=== PATIENT | female | born 1995 | race Caucasian/White ===

== ENCOUNTER 2017-01-13 17:42 | Emergency (ER) | payer OTHER ==
[2017-01-13] MEDS ORDERED: SODIUM CHLORIDE 0.9% 500 ML IV STA (18:03)
--- NOTE | 2017-01-13 18:09 | ED ---
General Adult HPI - General Chief complaint: Abdominal Pain Stated complaint: ,cramping Time Seen by Provider: 01/13/17 17:55 Source: patient, RN notes reviewed Mode of arrival: ambulatory Limitations: no limitations - History of Present Illness Initial comments: Patient is a 21-year-old female chief complaint of one day of lower left abdominal cramping. Patient reports that she took a positive test yesterday. Patient reported a severe first . Patient reports that she has had no vaginal discharge, nausea, vomiting, fever or chills. She denies any dysuria or hematuria. She denies any changes in bowel movements. 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 She reports last menstrual period was December 11. Patient denies any recent fever, chills, shortness of breath, chest pain, back pain, nausea vomiting, numbness or tingling, dysuria or hematuria, constipation or diarrhea, headaches or visual changes, or any other current symptoms - Related Data Home Medications Medication Instructions Recorded Confirmed Albuterol Inhaler [Ventolin 2 puff INHALATION Q6HR PRN 03/07/14 01/13/17 Inhaler] Montelukast Sodium [Singulair] 10 mg PO DAILY PRN 03/07/14 01/13/17 Previous Rx's Medication Instructions Recorded EPINEPHrine (Auto Inject) [Epipen] 0.3 mg IM ONCE PRN #1 syringe 12/16/15 Kqd-Qcir-Khuxl Acid 1 cap PO DAILY #30 cap 01/13/17 [-U Capsule] Allergies Allergy/AdvReac Type Severity Reaction Status Date / Time Milk Containing Products Allergy Anaphylaxis Verified 01/13/17 19:00 Penicillins Allergy Unknown Verified 01/13/17 19:00 sulfamethoxazole Allergy Unknown Verified 01/13/17 19:00 [From Bactrim] trimethoprim [From Bactrim] Allergy Unknown Verified 01/13/17 19:00 Review of Systems ROS Statement: Those systems with pertinent positive or pertinent negative responses have been documented in the HPI. ROS Other: All systems not noted in ROS Statement are negative. 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 No distress. Limitations: no limitations General appearance: alert, in no apparent distress Head exam: Present: atraumatic, normocephalic, normal inspection Eye exam: Present: normal appearance, PERRL, EOMI. Absent: scleral icterus, conjunctival injection, periorbital swelling ENT exam: Present: normal exam, mucous membranes moist Neck exam: Present: normal inspection. Absent: tenderness, meningismus, lymphadenopathy Respiratory exam: Present: normal lung sounds bilaterally. Absent: respiratory distress, wheezes, rales, rhonchi, stridor Cardiovascular Exam: Present: regular rate, normal rhythm, normal heart sounds. Absent: systolic murmur, diastolic murmur, rubs, gallop, clicks GI/Abdominal exam: Present: soft, tenderness (Patient has mild left lower quadrant tenderness), normal bowel sounds. Absent: distended, guarding, rebound , rigid External exam: Present: normal external exam. Absent: erythema, swelling Speculum exam: Present: normal speculum exam, vaginal discharge (Scant white vaginal discharge.). Absent: cervical discharge, vaginal bleeding, foreign body Extremities exam: Present: normal inspection, full ROM, normal capillary refill. Absent: tenderness, pedal edema, joint swelling, calf tenderness Back exam: Present: normal inspection Neurological exam: Present: alert, oriented X3, CN II-XII intact Psychiatric exam: Present: normal affect, normal mood Skin exam: Present: warm, dry, intact, normal color. Absent: rash Course Vital Signs 01/13/17 17:51 Temperature 98.1 F Pulse Rate 88 Respiratory 20 Rate Blood Pressure 157/67 O2 Sat by Pulse 98 Oximetry Medical Decision Making - Medical Decision Making Patient is a 21-year-old female chief complaint of one day of lower left abdominal cramping. Patient reports that she took a positive test yesterday. Patient reported a severe first . Patient reports that she has had no vaginal discharge, nausea, vomiting, fever or chills. She denies any dysuria or hematuria. Patient received lab work and transvaginal ultrasound to ensure no acute signs of ectopic . Transvaginal ultrasound was completed. No IUP is seen at this time. The uterus measures 6.6 x 3.3 x 3 cm. Right ovary is 3.2 x 2.1 x 1.87 m. There is evidence of right ovarian cyst measuring 1 cm. no evidence of ovarian torsion or free fluid within the pelvis. Patient's lab work was reviewed and is negative for any acute process. Patient does have a hCG serum Quant of 457. This is very early . I will have the patient repeat her lab work. I also will place the patient on vitamins. This is likely a normal cramping in early . I did advise the patient to follow-up with A[employer]ILI[employer] POWERPLANT OPERATOR and to return to emergency department if any alarming signs or symptoms occur. - Lab Data Result diagrams: 01/13/17 18:55 01/13/17 18:55 Lab Results 01/13/17 01/13/17 01/13/17 Range/Units 18:55 18:55 18:55 WBC 9.3 (4.0-11.0) k/uL RBC 5.11 (3.80-5.40) m/uL Hgb 14.1 (11.4-16.0) gm/dL Hct 41.8 (34.0-46.0) % MCV 81.8 (80.0-100.0) fL MCH 27.7 (25.0-35.0) pg MCHC 33.8 (31.0-37.0) g/dL RDW 14.0 (11.5-15.5) % Plt Count 440 (150-450) k/uL Neutrophils % 52 % Lymphocytes % 37 % Monocytes % 4 % Eosinophils % 3 % Basophils % 1 % Neutrophils # 4.8 (1.3-7.7) k/uL Lymphocytes # 3.4 (1.0-4.8) k/uL Monocytes # 0.4 (0-1.0) k/uL Eosinophils # 0.3 (0-0.7) k/uL Basophils # 0.1 (0-0.2) k/uL Sodium 142 (137-145) mmol/L Potassium 4.0 (3.5-5.1) mmol/L Chloride 104 (98-107) mmol/L Carbon Dioxide 22 (22-30) mmol/L Anion Gap 16 mmol/L BUN 13 (7-17) mg/dL Creatinine 0.77 (0.52-1.04) mg/dL Est GFR (MDRD) Af Amer >60 (>60 ml/min/1.73 sqM) Est GFR (MDRD) Non-Af >60 (>60 ml/min/1.73 sqM) Glucose 88 (74-99) mg/dL Calcium 10.1 (8.4-10.2) mg/dL Total Bilirubin 0.9 (0.2-1.3) mg/dL AST 31 (14-36) U/L ALT 34 (9-52) U/L Alkaline Phosphatase 113 (38-126) U/L Total Protein 8.6 H (6.3-8.2) g/dL Albumin 4.8 (3.5-5.0) g/dL Amylase 52 (30-110) U/L Lipase 81 (23-300) U/L HCG, Quant 457.9 mIU/mL Urine Color Urine Appearance (Clear) Urine pH (5.0-8.0) Ur Specific [place] (1.001-1.035) Urine Protein (Negative) Urine Glucose (UA) (Negative) Urine Ketones (Negative) Urine Blood (Negative) Urine Nitrate (Negative) Urine Bilirubin (Negative) Urine Urobilinogen (<2.0) mg/dL Ur Leukocyte Esterase (Negative) Urine WBC (0-5) /hpf Ur Squamous Epith Cells (0-4) /hpf Urine Mucus (None) /hpf Trichomonas Ag (Rapid) (Negative) Blood Type A Positive Blood Type Recheck No 01/13/17 01/13/17 Range/Units 18:55 18:55 WBC (4.0-11.0) k/uL RBC (3.80-5.40) m/uL Hgb (11.4-16.0) gm/dL Hct (34.0-46.0) % MCV (80.0-100.0) fL MCH (25.0-35.0) pg MCHC (31.0-37.0) g/dL RDW (11.5-15.5) % Plt Count (150-450) k/uL Neutrophils % % Lymphocytes % % Monocytes % % Eosinophils % % Basophils % % Neutrophils # (1.3-7.7) k/uL Lymphocytes # (1.0-4.8) k/uL Monocytes # (0-1.0) k/uL Eosinophils # (0-0.7) k/uL Basophils # (0-0.2) k/uL Sodium (137-145) mmol/L Potassium (3.5-5.1) mmol/L Chloride (98-107) mmol/L Carbon Dioxide (22-30) mmol/L Anion Gap mmol/L BUN (7-17) mg/dL Creatinine (0.52-1.04) mg/dL Est GFR (MDRD) Af Amer (>60 ml/min/1.73 sqM) Est GFR (MDRD) Non-Af (>60 ml/min/1.73 sqM) Glucose (74-99) mg/dL Calcium (8.4-10.2) mg/dL Total Bilirubin (0.2-1.3) mg/dL AST (14-36) U/L ALT (9-52) U/L Alkaline Phosphatase (38-126) U/L Total Protein (6.3-8.2) g/dL Albumin (3.5-5.0) g/dL Amylase (30-110) U/L Lipase (23-300) U/L HCG, Quant mIU/mL Urine Color Yellow Urine Appearance Cloudy H (Clear) Urine pH 5.5 (5.0-8.0) Ur Specific [place] 1.019 (1.001-1.035) Urine Protein Negative (Negative) Urine Glucose (UA) Negative (Negative) Urine Ketones 1+ H (Negative) Urine Blood Negative (Negative) Urine Nitrate Negative (Negative) Urine Bilirubin Negative (Negative) Urine Urobilinogen <2.0 (<2.0) mg/dL Ur Leukocyte Esterase Negative (Negative) Urine WBC 5 (0-5) /hpf Ur Squamous Epith Cells 18 H (0-4) /hpf Urine Mucus Rare H (None) /hpf Trichomonas Ag (Rapid) Negative (Negative) Blood Type Blood Type Recheck - Radiology Data Radiology results: report reviewed Gestational survey showed that there is no IUP seen. The uterus measures 6.6 x 3.3 x 3 cm. Gestational age was measured to be approximately 4 weeks and 5 days. Normal pelvic sonogram no evidence of intrauterine or extrauterine . Disposition Clinical Impression: Abdominal cramping affecting Disposition: HOME SELF-CARE Condition: Good Instructions: (ED) Additional Instructions: Patient is to rest, increase fluids and to return to emergency Department any alarming signs or symptoms occur. Repeat blood work in 2 days. Follow-up with primary care provider. Take vitamins. Prescriptions: Fer-Zvhn-Devbj Acid [-U Capsule] 1 cap PO DAILY #30 cap Referrals: Paris De Paz MD [Primary Care Provider] - 1-2 days Maggy Hirsch MD [STAFF PHYSICIAN] - 1-2 days Time of Disposition: 19:48
[2017-01-13 19:10] LABS: Basophils # (A) 0.1 k/uL (0-0.2); Basophils % (A) 1 %; CH 28.6; CHCM 35.1; Eosinophils # (A) 0.3 k/uL (0-0.7); Eosinophils % (A) 3 %; HCT 41.8 % (34.0-46.0); HGB 14.1 gm/dL (11.4-16.0); Luc # (Auto) 0.33; Luc % (Auto) 4; Lymphocytes # (A) 3.4 k/uL (1.0-4.8); Lymphocytes % (A) 37 %; MCH 27.7 pg (25.0-35.0); MCHC 33.8 g/dL (31.0-37.0); MCV 81.8 fL (80.0-100.0); Mean Platelet Volume 7.4; Monocytes # (A) 0.4 k/uL (0-1.0); Monocytes % (A) 4 %; Neutrophils # (A) 4.8 k/uL (1.3-7.7); Neutrophils % (A) 52 %; RBC 5.11 m/uL (3.80-5.40); WBC 9.3 k/uL (4.0-11.0); WBC (Perox) 8.82
[2017-01-13 19:19] LABS: ALT 34 U/L (9-52); AST 31 U/L (14-36); Alkaline Phosphatase 113 U/L (38-126); Amylase 52 U/L (30-110); Anion Gap 16 mmol/L; Blood Urea Nitrogen 13 mg/dL (7-17); Calcium 10.1 mg/dL (8.4-10.2); Carbon Dioxide 22 mmol/L (22-30); Chloride 104 mmol/L (98-107); Glucose 88 mg/dL (74-99); Non-African American GFR(MDRD) >60 (>60 ml/min/1.73 sqM); Sodium 142 mmol/L (137-145); Total Bilirubin 0.9 mg/dL (0.2-1.3); Total Protein 8.6 g/dL (6.3-8.2)
[2017-01-13 19:29] LABS: Appearance,Urine Cloudy (Clear); Bilirubin,Urine Negative (Negative); Glucose,Urine (UA) Negative (Negative); Ketones,Urine 1+ (Negative); Leukocyte Esterase,Urine Negative (Negative); Mucus,Urine Rare /hpf; Nitrite,Urine Negative (Negative); PH, Urine 5.5 (5.0-8.0); Particle Count 9036; Protein,Urine Negative (Negative); Specific Gravity,Urine 1.019 (1.001-1.035); Squamous Epithelial Cell,Urine 18 /hpf (0-4); UA Billing (MACRO vs. MICRO) MICRO; Urobilinogen,Urine <2.0 mg/dL (<2.0); WBC,Urine 5 /hpf (0-5)
[2017-01-13 19:35] LABS: HCG,Quantitative Serum 457.9 mIU/mL
--- NOTE | 2017-01-13 19:43 | US ---
EXAMINATION TYPE: US OB <= 14 wk fetus DATE OF EXAM: 01/13/2017 7:25 PM COMPARISON: NONE CLINICAL HISTORY: pain. Patient states taking a test yesterday. Cramping. No spotting EXAM PERFORMED: Transvaginal (TV) and Transabdominal (TA) EXAM MEASUREMENTS: GESTATIONAL AGE / DATING Dates by LMP: ( 4 weeks/5 days) EDC: 09/17/2017 Dates by Current Scan: No IUP seen at this time MATERNAL ANATOMY Uterus: 6.6 x 3.3 x 3.0 cm Right Ovary: 3.2 x 2.1 x 1.8 cm Left Ovary: 2.9 x 1.4 x 1.7 cm Post CDS / Adnexa: no free fluid Presence of corpus luteal cyst: right ovary = 1.8 x 1.1 x 1.3 cm GESTATION / SURVEY CRL: No IUP seen MSD: Gestational sac not seen Yolk Sac (normal less than 6mm): No yolk sac seen Heart Rate: No IUP seen IUP: No IUP seen at this time Date of LMP: 12/11/2016, G1 Beta HcG (if available): not available TECHNOLOGIST IMPRESSION: No IUP seen at this time IMPRESSION: Normal pelvic sonogram. No evidence of intrauterine or extrauterine .
[2017-01-13 20:14] VITALS: BP 130/66; PULSE 78; RESP 18; TEMP 98.4
== END 2017-01-13 20:14 | disposition home or self-care (01) ==
LOC: EC 17:42
DX: O34.81 Maternal care for other abnormalities of pelvic organs, first trimester (principal); O26.91 Pregnancy related conditions, unspecified, first trimester; O99.331 Smoking (tobacco) complicating pregnancy, first trimester; R10.32 Left lower quadrant pain; N83.11 Corpus luteum cyst of right ovary; J45.909 Unspecified asthma, uncomplicated; F17.200 Nicotine dependence, unspecified, uncomplicated; Z3A.01 Less than 8 weeks gestation of pregnancy; Z91.011 Allergy to milk products; Z88.0 Allergy status to penicillin; Z88.2 Allergy status to sulfonamides; Z79.899 Other long term (current) drug therapy
CPT/HCPCS: 36415; 76801; 76817; 80053; 81001; 82150; 83690; 84702; 85025; 86900; 86901; 87070; 87205; 87491; 87591; 87808; 96360; 99284

== ENCOUNTER → 2017-01-15 | Outpatient (CLI) | payer OTHER | END | disposition home or self-care (01) | LOC: LABWHC1 15:06 | PROVIDERS: ATTEND Physician Assistant Medical | DX: O20.0 Threatened abortion (principal) | CPT/HCPCS: 36415; 84702 ==

== ENCOUNTER 2017-03-09 19:34 | Emergency (ER) | payer OTHER ==
[2017-03-09 19:55] VITALS: BP 121/67; PULSE 77; RESP 18; TEMP 99.4
[2017-03-09] MEDS ORDERED: SODIUM CHLORIDE 0.9% 1,000 ML IV STA (20:17)
[2017-03-09] MEDS ORDERED: METOCLOPRAMIDE 5 MG/ML 2 ML VIAL IVP STA (20:17)
[2017-03-09] MEDS ORDERED: diphenhydrAMINE 50 MG/ML 1 ML VIAL IVP STA (20:17)
[2017-03-09] MEDS ORDERED: ACETAMINOPHEN TAB 500 MG TAB PO STA (20:27)
[2017-03-09 20:47] LABS: Basophils % (A) 0 %; CH 29.5; CHCM 36.9; Eosinophils # (A) 0.2 k/uL (0-0.7); Eosinophils % (A) 2 %; HCT 38.1 % (34.0-46.0); HDW 2.99; HGB 13.8 gm/dL (11.4-16.0); Luc # (Auto) 0.14; Luc % (Auto) 1; Lymphocytes # (A) 2.4 k/uL (1.0-4.8); Lymphocytes % (A) 22 %; MCH 29.1 pg (25.0-35.0); MCHC 36.2 g/dL (31.0-37.0); MCV 80.3 fL (80.0-100.0); Mean Platelet Volume 6.6; Monocytes # (A) 0.4 k/uL (0-1.0); Monocytes % (A) 3 %; Neutrophils # (A) 7.6 k/uL (1.3-7.7); Neutrophils % (A) 71 %; RBC 4.74 m/uL (3.80-5.40); RDW 14.5 % (11.5-15.5); WBC 10.7 k/uL (4.0-11.0); WBC (Perox) 10.47
[2017-03-09 20:55] LABS: Anion Gap 10 mmol/L; Blood Urea Nitrogen 11 mg/dL (7-17); Calcium 9.5 mg/dL (8.4-10.2); Carbon Dioxide 22 mmol/L (22-30); Chloride 104 mmol/L (98-107); Glucose 78 mg/dL (74-99); Non-African American GFR(MDRD) >60 (>60 ml/min/1.73 sqM); Sodium 136 mmol/L (137-145)
[2017-03-09 21:03] LABS: Appearance,Urine Cloudy (Clear); Bilirubin,Urine Negative (Negative); Glucose,Urine (UA) Negative (Negative); Ketones,Urine Negative (Negative); Leukocyte Esterase,Urine Trace (Negative); Mucus,Urine Occasional /hpf; Nitrite,Urine Negative (Negative); PH, Urine 5.5 (5.0-8.0); Particle Count 5609; Protein,Urine Negative (Negative); Specific Gravity,Urine 1.018 (1.001-1.035); Squamous Epithelial Cell,Urine 10 /hpf (0-4); UA Billing (MACRO vs. MICRO) MICRO; Urobilinogen,Urine <2.0 mg/dL (<2.0); WBC,Urine 1 /hpf (0-5)
--- NOTE | 2017-03-09 21:05 | ED ---
Headache HPI - General Chief Complaint: Headache Stated Complaint: headache hot flashes Time Seen by Provider: 03/09/17 20:17 Source: RN notes reviewed Mode of arrival: ambulatory Limitations: no limitations - History of Present Illness Initial Comments: This is a 21-year-old female sitting that she is approximately 12 weeks with chief complaint of one hour of a headache and lightheadedness. Patient states that she was standing while making dinner. She reports that that time she felt dizzy and lightheaded and had blurry vision for minute. She states that her vision does have subsided at this time. She denies any fever or chills or other associated symptoms. She reports that her headache is currently 5 out of 10. She did not take any Tylenol. She reports she is trying to stay hydrated. She denies any nausea or vomiting or abdominal pain. She denies any vaginal discharge, dysuria or pelvic cramping. Patient states that she did see Dr. Perera and her is going well. She denies any other associated symptoms. - Related Data Home Medications Medication Instructions Recorded Confirmed Albuterol Inhaler [Ventolin 2 puff INHALATION Q6HR PRN 03/07/14 03/09/17 Inhaler] Montelukast Sodium [Singulair] 10 mg PO DAILY PRN 03/07/14 03/09/17 Previous Rx's Medication Instructions Recorded EPINEPHrine (Auto Inject) [Epipen] 0.3 mg IM ONCE PRN #1 syringe 12/16/15 Sni-Egaz-Rswcq Acid 1 cap PO DAILY #30 cap 01/13/17 [-U Capsule (formulary)] Allergies Allergy/AdvReac Type Severity Reaction Status Date / Time Milk Containing Products Allergy Anaphylaxis Verified 03/09/17 20:06 Penicillins Allergy Anaphylaxis Verified 03/09/17 20:06 sulfamethoxazole AdvReac Vomiting Verified 03/09/17 20:06 [From Bactrim] trimethoprim [From Bactrim] AdvReac Vomiting Verified 03/09/17 20:06 Review of Systems ROS Statement: Those systems with pertinent positive or pertinent negative responses have been documented in the HPI. ROS Other: All systems not noted in ROS Statement are negative. 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 Limitations: no limitations General appearance: alert, in no apparent distress Head exam: Present: atraumatic, normocephalic, normal inspection Eye exam: Present: normal appearance, PERRL, EOMI. Absent: scleral icterus, conjunctival injection, periorbital swelling ENT exam: Present: normal exam, mucous membranes moist Neck exam: Present: normal inspection. Absent: tenderness, meningismus, lymphadenopathy Respiratory exam: Present: normal lung sounds bilaterally. Absent: respiratory distress, wheezes, rales, rhonchi, stridor Cardiovascular Exam: Present: regular rate, normal rhythm, normal heart sounds. Absent: systolic murmur, diastolic murmur, rubs, gallop, clicks GI/Abdominal exam: Present: soft, normal bowel sounds. Absent: distended, tenderness, guarding, rebound, rigid Extremities exam: Present: normal inspection, full ROM, normal capillary refill. Absent: tenderness, pedal edema, joint swelling, calf tenderness Back exam: Present: normal inspection Neurological exam: Present: alert, oriented X3, CN II-XII intact Expanded Patient oriented to: Present: person, place, time Speech: Present: fluid speech Cranial nerves: EOM's Intact: Normal, Gag Reflex: Normal, Tongue Deviation: Normal, Facial Sensation: Normal Cerebellar function: Finger to Nose: Normal Upper motor neuron: Pronator Drift: Normal Sensory exam: Upper Extremity Light Touch: Normal, Lower Extremity Light Touch: Normal Motor strength exam: RUE: 5, LUE: 5, RLE: 5, LLE: 5 Eye Response: (4) open spontaneously Motor Response: (6) obeys commands Verbal Response: (5) oriented [place] Total: 15 Psychiatric exam: Present: normal affect, normal mood Skin exam: Present: warm, dry, intact, normal color. Absent: rash Course Vital Signs 03/09/17 19:51 Temperature 99.4 F Pulse Rate 77 Respiratory 18 Rate Blood Pressure 121/67 O2 Sat by Pulse 100 Oximetry Medical Decision Making - Medical Decision Making This is a 21-year-old female chief complaint of headache and lightheadedness for approximately one hour. Patient was given IV fluid and labs are obtained. Urinalysis also obtained. Orthostatics obtained. Patient given IV Reglan and Benadryl for her headache as well as Tylenol. Patient states that she feels much better after fluids. Negative orthostatic. Patient advised to rest, increase fluids. Patient understands treatmentplan and will comply. - Lab Data Result diagrams: 03/09/17 20:36 03/09/17 20:36 Lab Results 03/09/17 03/09/17 03/09/17 Range/Units 20:36 20:36 20:53 WBC 10.7 (4.0-11.0) k/uL RBC 4.74 (3.80-5.40) m/uL Hgb 13.8 (11.4-16.0) gm/dL Hct 38.1 (34.0-46.0) % MCV 80.3 (80.0-100.0) fL MCH 29.1 (25.0-35.0) pg MCHC 36.2 (31.0-37.0) g/dL RDW 14.5 (11.5-15.5) % Plt Count 372 (150-450) k/uL Neutrophils % 71 % Lymphocytes % 22 % Monocytes % 3 % Eosinophils % 2 % Basophils % 0 % Neutrophils # 7.6 (1.3-7.7) k/uL Lymphocytes # 2.4 (1.0-4.8) k/uL Monocytes # 0.4 (0-1.0) k/uL Eosinophils # 0.2 (0-0.7) k/uL Basophils # 0.0 (0-0.2) k/uL Sodium 136 L (137-145) mmol/L Potassium 4.0 (3.5-5.1) mmol/L Chloride 104 (98-107) mmol/L Carbon Dioxide 22 (22-30) mmol/L Anion Gap 10 mmol/L BUN 11 (7-17) mg/dL Creatinine 0.56 (0.52-1.04) mg/dL Est GFR (MDRD) Af Amer >60 (>60 ml/min/1.73 sqM) Est GFR (MDRD) Non-Af >60 (>60 ml/min/1.73 sqM) Glucose 78 (74-99) mg/dL Calcium 9.5 (8.4-10.2) mg/dL Urine Color Yellow Urine Appearance Cloudy H (Clear) Urine pH 5.5 (5.0-8.0) Ur Specific [place] 1.018 (1.001-1.035) Urine Protein Negative (Negative) Urine Glucose (UA) Negative (Negative) Urine Ketones Negative (Negative) Urine Blood Negative (Negative) Urine Nitrite Negative (Negative) Urine Bilirubin Negative (Negative) Urine Urobilinogen <2.0 (<2.0) mg/dL Ur Leukocyte Esterase Trace H (Negative) Urine WBC 1 (0-5) /hpf Ur Squamous Epith Cells 10 H (0-4) /hpf Urine Mucus Occasional H (None) /hpf 03/10/17 04:30 EKG shows normal sinus rhythm. Ventricular rate 77 bpm. SC interval 140 mg. QRS duration 84 also notes. QT QTc is 410/463 ms. No evidence of ST elevation or T-wave inversion. No evidence of atrial or ventricular arrhythmias. Disposition Clinical Impression: Headache in Disposition: HOME SELF-CARE Condition: Good Instructions: Acute Headache (ED) Additional Instructions: Patient advised to rest, increase fluids. Patient needs to follow-up with primary care provider if symptoms continue to persist. Return to the emergency department if any alarming signs or symptoms occur. Referrals: Antonio Lim DO [Primary Care Provider] - 1-2 days Time of Disposition: 21:29
== END 2017-03-09 21:37 | disposition home or self-care (01) ==
LOC: EC 19:34
DX: O99.89 Other specified diseases and conditions complicating pregnancy, childbirth and the puerperium (principal); R51 Headache; O99.331 Smoking (tobacco) complicating pregnancy, first trimester; F17.200 Nicotine dependence, unspecified, uncomplicated; Z91.011 Allergy to milk products; Z88.0 Allergy status to penicillin; Z88.2 Allergy status to sulfonamides; Z3A.12 12 weeks gestation of pregnancy; Z79.899 Other long term (current) drug therapy
CPT/HCPCS: 99284; 96374; 96375; 96361; 36415; 93005; 80048; 85025; 81001; J1200; J2765

== ENCOUNTER 2017-06-28 12:15 | Outpatient (CLI) | payer OTHER ==
[2017-06-28 12:43] VITALS: BP 129/66; PULSE 81; RESP 18; TEMP 98.2
--- NOTE | 2017-06-30 13:28 | P.MSEPDOC ---
Presenting Problems - Arrival Data Date of Arrival on Unit: 06/28/17 Time of Arrival on Unit: 12:15 Mode of Transport: Ambulatory - Complaint OB-Reason for Admission/Chief Complaint: Decreased Movement Medical History - Information : 1 Para: 0 Term: 0 : 0 Abortions: Spontaneous or Elective: 0 Number of Living Children: 0 - Gestational Age Expected Date of Delivery: 09/17/17 Gestational Age by ARTHUR (wks/days): 28 Weeks and 5 Days - History Complications: Smoker Review of Systems - Review of Systems Constitutional: No problems Breast: No problems ENT: No problems Cardiovascular: No problems Respiratory: No problems Gastrointestinal: No problems Genitourinary: No problems Musculoskeletal: No problems Neurological: No problems Skin: No problems Vital Signs - Temperature Temperature: 98.2 F Temperature Source: Oral - Pulse Right Pulse Rate: 81 Pulse Assessment Method: Automatic Cuff - Respirations Respiratory Rate: 18 Oxygen Delivery Method: Room Air - Blood Pressure Right Arm Blood Pressure: 129/66 Blood Pressure Mean: 87 Blood Pressure Source: Automatic Cuff Medical Screen Scoring (Pre) - Cervical Exam Dilation: Exam Deferred - Uterine Contractions Frequency: N/A Duration: N/A Intensity: N/A - Maternal Vital Signs Maternal Temperature: N/A Maternal Blood Pressure: N/A Signs of Preeclampsia: N/A Maternal Respirations: N/A - Maternal Trauma Maternal Trauma: N/A - Assessment Baseline FHR: 145 Heart Rate - NICHD Category: Category I (Normal) = 0 NST: Reactive Position: N/A Station: N/A - Total Score Total Score (Pre): 0 - Level of Risk Level of Risk: N/A Medical Screen Scoring (Post) - Post Treatment Level of Risk Post Treatment Level of Risk: N/A Physician Notification (Post) - Physician Notified Physician Notified Date: 06/28/17 Physician Notified Time: 13:30 Physician/Practitioner Notified:: Delvis Spoke With: Delvis New Order Received: Yes (discharge) Disposition - Disposition OB Disposition: Triage, Discharge to home, Written follow up instructions reviewed Discharge Date: 06/28/17 Discharge Time: 13:05 I agree with the RN Medical Screening Exam: Yes Risk & Benefit of care provided described in d/c instruction: Yes Diagnosis: DECREASED MOVEMENTS, THIRD TRIMESTER, FETUS 1
== END 2017-06-28 13:05 | disposition home or self-care (01) ==
LOC: FBPOP 12:15
PROVIDERS: ATTEND Obstetrics & Gynecology
DX: O36.8131 Decreased fetal movements, third trimester, fetus 1 (principal); Z3A.28 28 weeks gestation of pregnancy
CPT/HCPCS: 59025; G0463; 99213

== ENCOUNTER 2017-08-16 22:41 | Outpatient (CLI) | payer OTHER ==
[2017-08-16 23:55] VITALS: BP 118/65; PULSE 92; RESP 16; TEMP 97.3
--- NOTE | 2017-08-26 21:34 | P.MSEPDOC ---
Presenting Problems - Arrival Data Date of Arrival on Unit: 08/16/17 Time of Arrival on Unit: 22:41 Mode of Transport: Wheelchair - Complaint OB-Reason for Admission/Chief Complaint: Decreased Movement Comment: Pt states she has not felt the baby move in '4 hours' Medical History - Information : 1 Para: 0 Term: 0 : 0 Abortions: Spontaneous or Elective: 0 Number of Living Children: 0 - Gestational Age Gestational Age by ARTHUR (wks/days): 35 Weeks and 3 Days - History Complications: Smoker Review of Systems - Review of Systems Constitutional: No problems Breast: No problems ENT: No problems Cardiovascular: No problems Respiratory: No problems Gastrointestinal: No problems Genitourinary: No problems Musculoskeletal: No problems Neurological: No problems Skin: No problems Vital Signs - Temperature Temperature: 97.3 F Temperature Source: Tympanic - Pulse Pulse Oximetery Pulse Rate: 92 Pulse Assessment Method: Pulse Oximetry - Respirations Respiratory Rate: 16 Oxygen Delivery Method: Room Air O2 Sat by Pulse Oximetry: 99 - Blood Pressure Right Arm Blood Pressure: 118/65 Blood Pressure Mean: 82 Blood Pressure Source: Automatic Cuff Medical Screen Scoring (Pre) - Cervical Exam Dilation: Exam Deferred Effacement: Exam Deferred Membranes: Intact - Uterine Contractions Frequency: N/A Duration: N/A Intensity: N/A - Maternal Vital Signs Maternal Temperature: N/A Maternal Blood Pressure: N/A Signs of Preeclampsia: N/A Maternal Respirations: N/A - Maternal Trauma Maternal Trauma: N/A - Assessment Baseline FHR: 145 Heart Rate - NICHD Category: Category I (Normal) = 0 NST: Reactive Position: N/A Station: N/A - Total Score Total Score (Pre): 0 - Level of Risk Level of Risk: Low (0-5) Physician Notification (Pre) - Physician Notified Physician Notified Date: 08/16/17 Physician Notified Time: 23:31 Physician/Practitioner Notifed:: Dr. Oconnell Spoke With: Dr. Oconnell New Order Received: Yes (Orders for discharge given) Disposition - Disposition OB Disposition: Discharge to home Discharge Date: 08/16/17 Discharge Time: 23:40 I agree with the RN Medical Screening Exam: Yes Risk & Benefit of care provided described in d/c instruction: Yes Diagnosis: DECREASED MOVEMENTS, UNSP TRIMESTER, UNSP
== END 2017-08-16 23:40 | disposition home or self-care (01) ==
LOC: FBPOP 22:41
PROVIDERS: ATTEND Obstetrics & Gynecology
DX: O36.8190 Decreased fetal movements, unspecified trimester, not applicable or unspecified (principal); Z3A.35 35 weeks gestation of pregnancy
CPT/HCPCS: 59025; G0463; 99213

== ENCOUNTER 2017-09-19 06:00 | Inpatient (IN) | payer OTHER ==
[2017-09-19] MEDS ORDERED: DINOPROSTONE 10 MG INSERT.ER VAGINAL ONE (19:18)
[2017-09-19 19:30] VITALS: BMI 36.1
--- NOTE | 2017-09-19 20:40 | P.HPOB ---
History of Present Illness H&P Date: 09/19/17 Chief Complaint: The and 2/7 weeks, oligohydramnios, unfavorable cervix The patient is a 21-year-old 1 para 0 admitted at 40-2/7 weeks as established by last menstrual period and confirmed by 19 week ultrasound. She is admitted for Cervidil cervical ripening procedure and subsequent Pitocin induction if necessary secondary to the diagnosis of oligohydramnios discovered on bedside ultrasound today in the office at which time her amniotic fluid index was approximately 4.2 cm. Her cervix was noted to be unfavorable at 1 cm of dilation, approximately 50% effacement with the vertex in presentation at -2 station but the cervix remains significantly posterior with an inability to easily break the bag of water. Her has been otherwise uncomplicated. Upon admission, all signs are reassuring and group B strep status is negative. Obstetrical history: 1 para 0 with current statistics listed above. EDC of 09/17/2017 was established by last menstrual period and confirmed by 19 week ultrasound. Laboratory workup demonstrates a blood type of A+ with a negative antibody screen. Rubella status is immune. The remainder of her laboratory workup was within normal limits. Early Glucola as well as second trimester Glucola were within normal limits. Group B strep status is negative. Gynecologic history: Unremarkable with no history of any infections to include STDs. Review of Systems Review of systems is confined to history of present illness. 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, pt states she has had one seizure 'about 4 years ago' History of Any Multi-Drug Resistant Organisms: None Reported Past Surgical History: Tonsillectomy Additional Past Surgical History / Comment(s): tonsillectomy 2010 Past Anesthesia/Blood Transfusion Reactions: No Reported Reaction Past Psychological History: No Psychological Hx Reported Smoking Status: Current every day smoker Past Alcohol Use History: None Reported Past Drug Use History: None Reported - Past Family History Mother Family Medical History: No Reported History Medications and Allergies Home Medications Medication Instructions Recorded Confirmed Type Albuterol Inhaler [Ventolin 2 puff INHALATION Q6HR PRN 03/07/14 09/19/17 History Inhaler] EPINEPHrine (Auto Inject) [Epipen] 0.3 mg IM ONCE PRN #1 syringe 12/16/15 Rx Yjq-Nidy-Wynvu Acid 1 cap PO DAILY 09/17/17 09/19/17 History [-U Capsule (formulary)] Allergies Allergy/AdvReac Type Severity Reaction Status Date / Time Milk Containing Products Allergy Anaphylaxis Verified 09/19/17 19:17 Penicillins Allergy Rash/Hives Verified 09/19/17 19:17 sulfamethoxazole AdvReac Vomiting Verified 09/19/17 19:17 [From Bactrim] trimethoprim [From Bactrim] AdvReac Vomiting Verified 09/19/17 19:17 Exam - Vital Signs Vital signs: Vital Signs Temp Pulse Resp BP Pulse Ox 09/19/17 19:16 97.2 F L 88 16 135/84 97 Intake and Output 09/19/17 09/19/17 09/19/17 06:59 14:59 22:59 Other: Weight 98.43 kg Patient Weight 09/20/17 06:59 Weight 98.43 kg In general, this is a well-developed, well-nourished white female in no acute distress. Her heart has a regular rhythm and rate without murmur. Her lungs are clear to auscultation bilaterally in all [place]. Her abdomen is gravid, nondistended, has normal active bowel sounds, is soft, nontender, without any palpable masses aside from uterine fundus. Her extremities are without any cyanosis, clubbing, or significant edema and are nontender to palpation bilaterally. Digital cervical examination confirms her cervix to be 1 cm dilated, 50% effaced, the vertex in presentation at -2 station and the cervix is posterior. Cervidil is placed in the posterior fornix per protocol. Assessment and Plan (1) Term Current Visit: Yes Status: Acute Code(s): Z34.80 - ENCOUNTER FOR SUPRVSN OF NORMAL , UNSP TRIMESTER SNOMED Code(s): 59864438 (2) Oligohydramnios Current Visit: Yes Status: Acute Code(s): O41.00X0 - OLIGOHYDRAMNIOS, UNSP TRIMESTER, NOT APPLICABLE OR UNSP SNOMED Code(s): 42774323 (3) Unfavorable cervix in term Current Visit: Yes Status: Acute Code(s): O34.40 - MATERNAL CARE FOR OTH ABNLT OF CERVIX, UNSP TRIMESTER SNOMED Code(s): 755698780 Plan: The patient has been admitted for Cervidil cervical ripening and subsequent Pitocin induction if it becomes necessary. The risks and complications of Cervidil as well as Pitocin have been discussed with the patient. She is understood these and agreed to proceed. She will have close maternal and surveillance and expectant management will be practiced. She is a good candidate for either IV or epidural analgesia, whichever she may choose.
[2017-09-19 21:08] LABS: Basophils # (A) 0.1 k/uL (0-0.2); Basophils % (A) 0 %; CH 29.2; CHCM 34.5; Eosinophils # (A) 0.3 k/uL (0-0.7); Eosinophils % (A) 2 %; HCT 38.2 % (34.0-46.0); HDW 3.05; HGB 12.5 gm/dL (11.4-16.0); Luc # (Auto) 0.18; Luc % (Auto) 1; Lymphocytes # (A) 2.8 k/uL (1.0-4.8); Lymphocytes % (A) 19 %; MCH 27.8 pg (25.0-35.0); MCHC 32.6 g/dL (31.0-37.0); MCV 85.3 fL (80.0-100.0); Mean Platelet Volume 7.3; Monocytes # (A) 0.5 k/uL (0-1.0); Monocytes % (A) 3 %; Neutrophils # (A) 11.1 k/uL (1.3-7.7); Neutrophils % (A) 75 %; RBC 4.48 m/uL (3.80-5.40); RDW 14.1 % (11.5-15.5); WBC 14.9 k/uL (4.0-11.0); WBC (Perox) 15.44
[2017-09-19] MEDS: BUTORPHANOL 1 MG/ML 1 ML VIAL IV PRN (22:58)
[2017-09-20] MEDS: BUTORPHANOL 1 MG/ML 1 ML VIAL IV PRN ×2 (03:15→09:47)
[2017-09-20] MEDS ORDERED: OXYTOCIN 20 UNITS/1000 ML NS 1,000 ML IV SCH (06:00)
[2017-09-20] MEDS: LACTATED RINGERS 1,000 ML IV SCH ×2 (06:01→13:54)
[2017-09-20] MEDS ORDERED: BUTORPHANOL 1 MG/ML 1 ML VIAL IV PRN (12:38)
[2017-09-20] MEDS ORDERED: BUPIVACAINE (PF) 0.25% 30 ML VIAL ONE (13:25)
[2017-09-20] MEDS ORDERED: SODIUM CHLORIDE 0.9% 100 ML BAG ONE (13:25)
[2017-09-20] MEDS ORDERED: fentaNYL (PF) 50 MCG/ML 5 ML AMP ONE (13:25)
[2017-09-20] MEDS ORDERED: ZOLPIDEM 5 MG TAB PO PRN (16:45)
[2017-09-20] MEDS ORDERED: diphenhydrAMINE 50 MG CAP PO PRN (16:45)
[2017-09-20] MEDS ORDERED: Acetaminophen-Codeine 300-30mg TAB PO PRN ×2 (16:45)
[2017-09-20] MEDS ORDERED: HYDROCORTISONE 2.5% RECTAL CREAM 30 GM TUBE RECTAL PRN (16:45)
[2017-09-20] MEDS ORDERED: BENZOCAINE/MENTHOL SPRAY 1 GM/SPRAY AEROSOL TOPICAL PRN (16:45)
[2017-09-20] MEDS ORDERED: IBUPROFEN 600 MG TAB PO PRN (16:45)
[2017-09-20] MEDS ORDERED: diphenhydrAMINE 50 MG/ML 1 ML VIAL IVP PRN ×2 (16:45)
[2017-09-20] MEDS ORDERED: LANOLIN CREAM 5 GM TUBE TOPICAL PRN (16:45)
[2017-09-20] MEDS ORDERED: diphenhydrAMINE 25 MG CAP PO PRN (16:45)
[2017-09-20] MEDS ORDERED: SIMETHICONE 80 MG CHEWABLE PO PRN (16:45)
[2017-09-20] MEDS ORDERED: WITCH HAZEL 1 EACH MED..PAD TOPICAL PRN (16:45)
--- NOTE | 2017-09-20 16:49 | P.PROBDLV ---
Vaginal Delivery Note - . Vaginal Delivery Note: The patient is a 21-year-old 1 para 0 admitted at 40-2/7 weeks for Cervidil cervical ripening procedure to be followed by Pitocin induction if necessary. She was admitted secondary to a diagnosis of oligohydramnios diagnosed by bedside ultrasound in the office the day of admission. Her was otherwise uncomplicated and group B strep status was negative. On labor and delivery, all signs reassuring. She had Cervidil placed in the posterior fornix per protocol and was left in place overnight and removed at 06 100 this morning. She did have moderate cramping through the night and, upon cervical examination this morning, was found to be more dilated and favorable then she was at the time of placement. Her cervix was approximately 2 cm dilated, 60% effaced with the vertex in presentation at -2 station. Artificial rupture of membranes is carried out demonstrating clear fluid. Pitocin augmentation has Sly been started. She made progress to approximately 47 m which time an epidural was placed for analgesia. She then progressed steadily through the active phase of labor and ultimately progressed to complete and 0 to +1 station. She pushed over the course of approximately 30 minutes to a normal spontaneous vaginal delivery of a viable 5 lbs. 11 oz. baby boy with Apgars of 8 at 1 minute and 9 at 5 minutes delivered in the direct occiput anterior position. The placenta was delivered spontaneously, intact, and grossly normal although it was fairly significantly calcified in nature. There was a grossly normal, centrally inserted three-vessel cord present. Examination of the perineum, vagina, and cervix to straighten only some mild skin splits on the labia minora bilaterally which were not repaired as they were not bleeding. There were no complications. All sponge, instrument, and needle counts were correct. Both mother and infant are resting comfortably in recovery.
[2017-09-20] MEDS: ACETAMINOPHEN TAB 325 MG TAB PO PRN (19:33)
[2017-09-20] MEDS: SENNOSIDES-DOCUSATE SODIUM 1 EACH TAB PO SCH (20:50)
[2017-09-21] MEDS: ACETAMINOPHEN TAB 325 MG TAB PO PRN ×3 (00:48→13:26)
[2017-09-21] MEDS: SENNOSIDES-DOCUSATE SODIUM 1 EACH TAB PO SCH (08:04)
--- NOTE | 2017-09-21 11:17 | P.DS ---
Providers Date of admission: 09/19/17 19:11 Expected date of discharge: 09/21/17 Attending physician: Uriah Edmondson Primary care physician: Stated None - Discharge Diagnosis(es) (1) Term Current Visit: Yes Status: Acute (2) Oligohydramnios Current Visit: Yes Status: Acute (3) Unfavorable cervix in term Current Visit: Yes Status: Acute (4) Normal spontaneous vaginal delivery Current Visit: Yes Status: Acute Hospital Course: The patient is a 21-year-old 1 para 0 admitted at 40-2/7 weeks by good dating parameters. She was admitted for Cervidil cervical ripening with an unfavorable cervix secondary to the diagnosis of oligohydramnios. Cervidil was placed overnight and Pitocin started the following morning. Artificial rupture of membranes was carried out for clear fluid. She had an epidural catheter placed during the active phase of labor and progressed ultimately to complete where after she pushed to a normal spontaneous vaginal delivery of a viable 5 lbs. 12 oz. baby boy with Apgars of 8 at 1 minute and 9 at 5 minutes. Her course was unremarkable with vital signs remaining stable and her temperature was afebrile throughout. She was deemed stable for discharge on day #1 was discharged home to follow-up in the office in 6 weeks' time routinely. Discharge instructions included calling for any significantly increased bleeding or foul-smelling lochia, significantly increased fever or abdominal pain, perineal complaints, breast complaints, or anything else that concerned her. She was additionally instructed to have nothing in the vagina for at least 6 weeks time to include intercourse. She understood her instructions and agrees to follow up as noted above. Discharge medications included continued vitamins as she has opted to breast-feed. She was otherwise to use [id number] analgesic pain medications as needed. Maternal blood type is A+ and rubella status is immune. Procedures: #1. Cervidil cervical ripening #2. Pitocin induction #3. Artificial rupture of membranes #4. Epidural analgesia #5. Normal spontaneous vaginal delivery Patient Condition at Discharge: Good Plan - Discharge Summary New Discharge Prescriptions: No Action Albuterol Inhaler [Ventolin Inhaler] 2 puff INHALATION Q6HR PRN PRN Reason: Allergic Reaction EPINEPHrine (Auto Inject) [Epipen] 0.3 mg IM ONCE PRN #1 syringe PRN Reason: Anaphylaxis Umm-Vvod-Ecylu Acid [-U Capsule (formulary)] 1 cap PO DAILY Discharge Medication List Albuterol Inhaler [Ventolin Inhaler] 2 puff INHALATION Q6HR PRN 03/07/14 [ History] EPINEPHrine (Auto Inject) [Epipen] 0.3 mg IM ONCE PRN #1 syringe 12/16/15 [Rx] Dgh-Jpun-Lviwl Acid [-U Capsule (formulary)] 1 cap PO DAILY [History] Follow up Appointment(s)/Referral(s): Uriah Edmondson MD [STAFF PHYSICIAN] - 6 Weeks Discharge Disposition: HOME SELF-CARE
[2017-09-21 13:30] VITALS: RESP 14
[2017-09-21 15:37] VITALS: BP 115/69; PULSE 79; TEMP 98.2
== END 2017-09-21 17:17 | disposition home or self-care (01) | DRG 560 ==
LOC: 4FBP 19:11
PROVIDERS: ADMIT Obstetrics & Gynecology; ATTEND Obstetrics & Gynecology
PROC: 3E0P7VZ Introduction of Hormone into Female Reproductive, Via Natural or Artificial Opening (ICD-10-PCS; 2017-09-19)
PROC: 10E0XZZ Delivery of Products of Conception, External Approach (ICD-10-PCS; principal; 2017-09-20)
PROC: 3E0R3BZ Introduction of Anesthetic Agent into Spinal Canal, Percutaneous Approach (ICD-10-PCS; 2017-09-20)
PROC: 00HU33Z Insertion of Infusion Device into Spinal Canal, Percutaneous Approach (ICD-10-PCS; 2017-09-20)
PROC: 3E033VJ Introduction of Other Hormone into Peripheral Vein, Percutaneous Approach (ICD-10-PCS; 2017-09-20)
PROC: 10907ZC Drainage of Amniotic Fluid, Therapeutic from Products of Conception, Via Natural or Artificial Opening (ICD-10-PCS; 2017-09-20)
DX: O41.03X0 Oligohydramnios, third trimester, not applicable or unspecified (principal); O99.354 Diseases of the nervous system complicating childbirth; J45.909 Unspecified asthma, uncomplicated; O99.52 Diseases of the respiratory system complicating childbirth; Z37.0 Single live birth; Z3A.40 40 weeks gestation of pregnancy; G40.909 Epilepsy, unspecified, not intractable, without status epilepticus; O99.334 Smoking (tobacco) complicating childbirth; F17.200 Nicotine dependence, unspecified, uncomplicated; Z79.899 Other long term (current) drug therapy; Z88.0 Allergy status to penicillin; Z88.2 Allergy status to sulfonamides; Z91.011 Allergy to milk products
CPT/HCPCS: 85025; 88307

== ENCOUNTER 2017-11-26 10:37 | Emergency (ER) | payer OTHER ==
[2017-11-26 10:58] VITALS: RESP 20
[2017-11-26] MEDS ORDERED: IPRATROPIUM-ALBUTEROL 3 ML NEB INHALATION STA (12:21)
[2017-11-26] MEDS ORDERED: ACETAMINOPHEN TAB 325 MG TAB PO STA (13:11)
--- NOTE | 2017-11-26 13:13 | ED ---
Pediatric Fever HPI - General Chief Complaint: Fever Stated Complaint: Cough/Cold Time Seen by Provider: 11/26/17 12:04 Source: patient, RN notes reviewed Mode of arrival: ambulatory Limitations: no limitations - History of Present Illness Initial Comments: 22-year-old female presents emergency department chiefly fever cough congestion last 2 days. Patient states that her brother was tested positive for influenza. Patient states that she is also having some shortness breath related to her asthma she's been using her inhaler minimal relief. Patient takes ibuprofen prior arrival no recent Tylenol. Patient denies ear pain, headache, dizziness, neck pain or neck stiffness. She's had no nausea vomiting diarrhea constipation. - Related Data Home Medications Medication Instructions Recorded Confirmed Albuterol Inhaler [Ventolin 2 puff INHALATION RT-QID PRN 03/07/14 11/26/17 Inhaler] Montelukast [Singulair] 10 mg PO HS 11/26/17 11/26/17 Previous Rx's Medication Instructions Recorded Azithromycin [Zithromax Z-pack] 0 mg PO DIRECTED #1 pack 11/26/17 Oseltamivir [Tamiflu] 75 mg PO Q12HR #10 cap 11/26/17 Allergies Allergy/AdvReac Type Severity Reaction Status Date / Time Milk Containing Products Allergy Anaphylaxis Verified 11/26/17 11:58 Penicillins Allergy Rash/Hives Verified 11/26/17 11:58 sulfamethoxazole AdvReac Vomiting Verified 11/26/17 11:58 [From Bactrim] trimethoprim [From Bactrim] AdvReac Vomiting Verified 11/26/17 11:58 Review of Systems ROS Statement: Those systems with pertinent positive or pertinent negative responses have been documented in the HPI. ROS Other: All systems not noted in ROS Statement are negative. 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, pt states she has had one seizure 'about 4 years ago' History of Any Multi-Drug Resistant Organisms: None Reported Past Surgical History: Tonsillectomy Additional Past Surgical History / Comment(s): tonsillectomy 2009 Past Anesthesia/Blood Transfusion Reactions: No Reported Reaction Past Psychological History: No Psychological Hx Reported Smoking Status: Current every day smoker Past Alcohol Use History: None Reported Past Drug Use History: Marijuana - Past Family History Mother Family Medical History: No Reported History General Exam Limitations: no limitations General appearance: alert, in no apparent distress Head exam: Present: atraumatic, normocephalic, normal inspection Eye exam: Present: normal appearance, PERRL, EOMI. Absent: scleral icterus, conjunctival injection, periorbital swelling ENT exam: Present: normal exam, normal oropharynx, mucous membranes moist, TM's normal bilaterally, normal external ear exam Neck exam: Present: normal inspection, full ROM. Absent: tenderness, meningismus, lymphadenopathy Respiratory exam: Present: wheezes. Absent: normal lung sounds bilaterally, respiratory distress, rales, rhonchi, stridor Cardiovascular Exam: Present: normal rhythm, tachycardia, normal heart sounds. Absent: systolic murmur, diastolic murmur, rubs, gallop, clicks Course Vital Signs 11/26/17 11/26/17 11/26/17 10:54 11:56 12:58 Temperature 99.4 F Pulse Rate 118 H 104 H Respiratory 20 20 Rate Blood Pressure 167/68 O2 Sat by Pulse 97 Oximetry 11/26/17 13:10 Temperature Pulse Rate 96 Respiratory Rate Blood Pressure O2 Sat by Pulse Oximetry Medical Decision Making - Medical Decision Making 22-year-old female presented for cough congestion. Patient x-ray shows no acute abnormality. Patient is mild wheezing resolved after DuoNeb treatment. Patient has a history of asthma. Patient sniffing others positive for influenza , child's positive for pneumonia. Patient will be discharged this time follow- up closely return parameters were discussed. - Lab Data Lab Results 11/26/17 Range/Units 11:18 Influenza Type A RNA Not Detected (Not Detectd) Influenza Type B (PCR) Not Detected (Not Detectd) Disposition Clinical Impression: URI (upper respiratory infection) Disposition: HOME SELF-CARE Condition: Stable Instructions: Upper Respiratory Infection (ED) Additional Instructions: Please return to the Emergency Department if symptoms worsen or any other concerns. Prescriptions: Azithromycin [Zithromax Z-pack] 0 mg PO DIRECTED #1 pack Oseltamivir [Tamiflu] 75 mg PO Q12HR #10 cap Referrals: Antonio Lim DO [Primary Care Provider] - 1-2 days Time of Disposition: 14:43
--- NOTE | 2017-11-26 13:40 | XR ---
EXAMINATION TYPE: XR chest 2V DATE OF EXAM: 11/26/2017 COMPARISON: NONE HISTORY: Chest pain TECHNIQUE: Frontal and lateral views of the chest are obtained. FINDINGS: There is no focal air space opacity. No evidence for pneumothorax. No pleural effusion. The cardiac silhouette size is within normal limits. The osseous structures are grossly intact. IMPRESSION: 1. No acute cardiopulmonary process.
[2017-11-26 15:01] VITALS: BP 128/84; PULSE 78; TEMP 98.8
== END 2017-11-26 15:01 | disposition home or self-care (01) ==
LOC: EC 10:37
DX: J06.9 Acute upper respiratory infection, unspecified (principal); J45.909 Unspecified asthma, uncomplicated; F17.200 Nicotine dependence, unspecified, uncomplicated; Z79.899 Other long term (current) drug therapy; Z91.011 Allergy to milk products; Z88.0 Allergy status to penicillin; Z88.2 Allergy status to sulfonamides
CPT/HCPCS: 71046; 87502; 94640; 99284

== ENCOUNTER 2018-11-04 16:49 | Emergency (ER) | payer OTHER ==
[2018-11-04 17:09] VITALS: BP 123/78; PULSE 83; RESP 20; TEMP 98.1
[2018-11-04 18:49] LABS: Basophils # (A) 0.1 k/uL (0-0.2); Basophils % (A) 1 %; Eosinophils # (A) 0.5 k/uL (0-0.7); Eosinophils % (A) 4 %; HCT 44.3 % (34.0-46.0); HGB 14.9 gm/dL (11.4-16.0); Lymphocytes # (A) 3.1 k/uL (1.0-4.8); Lymphocytes % (A) 26 %; MCHC 33.7 g/dL (31.0-37.0); MCV 86.3 fL (80.0-100.0); Mean Platelet Volume 7.2; Monocytes # (A) 0.4 k/uL (0-1.0); Monocytes % (A) 3 %; Neutrophils % (A) 66 %; Platelet Count 371 k/uL (150-450); RBC 5.14 m/uL (3.80-5.40); RDW 13.7 % (11.5-15.5); WBC 12.2 k/uL (3.8-10.6)
[2018-11-04 18:56] LABS: ALT 12 U/L (9-52); AST 39 U/L (14-36); Albumin 4.3 g/dL (3.5-5.0); Alkaline Phosphatase 69 U/L (38-126); Anion Gap 9 mmol/L; Blood Urea Nitrogen 12 mg/dL (7-17); Calcium 9.3 mg/dL (8.4-10.2); Carbon Dioxide 18 mmol/L (22-30); Chloride 112 mmol/L (98-107); Glucose 78 mg/dL (74-99); Sodium 139 mmol/L (137-145); Total Protein 7.7 g/dL (6.3-8.2)
[2018-11-04 19:02] LABS: Potassium 5.9 mmol/L (3.5-5.1)
[2018-11-04 19:25] LABS: Appearance,Urine Clear (Clear); Bilirubin,Urine Negative (Negative); Blood,Urine Negative (Negative); Color,Urine Yellow; Glucose,Urine (UA) Negative (Negative); Ketones,Urine Negative (Negative); Leukocyte Esterase,Urine Moderate (Negative); Mucus,Urine Rare /hpf; Nitrite,Urine Negative (Negative); PH, Urine 5.5 (5.0-8.0); Protein,Urine Negative (Negative); RBC,Urine 2 /hpf (0-5); Specific Gravity,Urine 1.019 (1.001-1.035); Squamous Epithelial Cell,Urine 3 /hpf (0-4); WBC,Urine 19 /hpf (0-5)
== END 2018-11-04 19:20 ==
LOC: EC 16:49
DX: Z03.89 Encounter for observation for other suspected diseases and conditions ruled out (principal)
CPT/HCPCS: 36415; 80053; 81001; 85025; 99499

== ENCOUNTER 2019-01-13 09:04 | Emergency (ER) | payer OTHER ==
[2019-01-13 09:10] VITALS: BP 121/75; PULSE 87; RESP 18; TEMP 98.3
--- NOTE | 2019-01-13 09:59 | ED ---
Abdominal Pain HPI - General Chief Complaint: Abdominal Pain Stated Complaint: cramping-14 wks Time Seen by Provider: 01/13/19 09:39 Source: patient, RN notes reviewed, old records reviewed Mode of arrival: ambulatory Limitations: no limitations - History of Present Illness Initial Comments: is a 23-year-old female presents emergency room today with complaints of abdominal cramping. Symptoms started 3 hours ago. Patient states that she used to see her [facility] today for follow-up M follow-up appointment. Patient states that she is 14 weeks . She denies any vaginal bleeding or discharge. - Related Data Home Medications Medication Instructions Recorded Confirmed Albuterol Inhaler [Ventolin 2 puff INHALATION RT-QID PRN 03/07/14 01/13/19 Inhaler] Gnt-Vqzc-Nyltt Acid 1 cap PO DAILY 01/13/19 01/13/19 [-U Capsule (formulary)] Previous Rx's Medication Instructions Recorded Cephalexin [Keflex] 500 mg PO BID #10 cap 01/13/19 Allergies Allergy/AdvReac Type Severity Reaction Status Date / Time Milk Containing Products Allergy Anaphylaxis Verified 01/13/19 09:37 Penicillins Allergy Rash/Hives Verified 01/13/19 09:37 sulfamethoxazole AdvReac Vomiting Verified 01/13/19 09:37 [From Bactrim] trimethoprim [From Bactrim] AdvReac Vomiting Verified 01/13/19 09:37 Review of Systems ROS Statement: Those systems with pertinent positive or pertinent negative responses have been documented in the HPI. ROS Other: All systems not noted in ROS Statement are negative. 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, pt states she has had one seizure 'about 4 years ago' History of Any Multi-Drug Resistant Organisms: None Reported Past Surgical History: Tonsillectomy Additional Past Surgical History / Comment(s): tonsillectomy 2010 Past Anesthesia/Blood Transfusion Reactions: No Reported Reaction Past Psychological History: No Psychological Hx Reported Smoking Status: Current every day smoker Past Alcohol Use History: None Reported Past Drug Use History: Marijuana - Past Family History Mother Family Medical History: No Reported History General Exam - General Exam Comments Initial Comments: Well-appearing 23-year-old female. No distress. General: Well appearing, well nourished, in no distress. Oriented x 3, normal mood and affect . Ambulating without difficulty. Skin: Good turgor, no rash, unusual bruising or prominent lesions Hair: Normal texture and distribution. HEENT: Head: Normocephalic, atraumatic, no visible or palpable masses, depressions, or scaring. Eyes: Visual acuity intact, conjunctiva clear, sclera non-icteric, EOM intact, PERRL. Ears: EACs clear, TMs translucent & cone of light visualized. hearing intact. Nose: No external lesions, mucosa non-inflamed, septum and turbinates normal Mouth: Mucous membranes moist, no mucosal lesions. Teeth/Gums: No obvious caries or periodontal disease. No gingival inflammation or significant resorption. Pharynx: Mucosa non-inflamed, no tonsillar hypertrophy or exudate Neck: Supple, without lesions, bruits, or adenopathy, thyroid non-enlarged and non-tender Heart: No cardiomegaly or thrills; regular rate and rhythm, no murmur or gallop Lungs: Clear to auscultation and percussion Abdomen: Bowel sounds normal, no tenderness, organomegaly, masses, or hernia Extremities: No amputations or deformities, cyanosis, edema or varicosities, peripheral pulses intact Musculoskeletal: Normal gait and station. No misalignment, asymmetry, crepitation, defects, tenderness, masses, effusions, decreased range of motion, instability, atrophy or abnormal strength or tone in the head, neck, spine, ribs, pelvis or extremities. Neurologic: CN 2-12 normal. Sensation to pain, touch, and proprioception normal. DTRs normal in upper and lower extremities. No pathologic reflexes. Psychiatric: Oriented X3, intact recent and remote memory, judgment and insight, normal mood and affect. Patient refused pelvic exam and she is seeing her [facility]. She denies vaginal bleeding or discharge. Limitations: no limitations Course Vital Signs 01/13/19 09:07 Temperature 98.3 F Pulse Rate 87 Respiratory 18 Rate Blood Pressure 121/75 O2 Sat by Pulse 98 Oximetry Medical Decision Making - Medical Decision Making 23-year-old female who is currently 14 weeks , presents emergency department if abdominal cramping 2 hours. She states her [facility] in the next few hours. At this time Patient has no vaginal bleeding or discharge. Patient reports she still see her [facility] at 10:45 AM. At this time patient's ultrasound shows viable IUP with a heart rate of 149 beats were minute. Urinalysis is positive for white blood cells. We'll treat the Patient for bacteriuria . Patient refused pelvic exam she seen her [facility] at this time. Discussed that she can have close follow-up with primary care physician. QUESTIONS were answered return parameters were discussed. - Lab Data Result diagrams: 01/13/19 09:35 Lab Results 01/13/19 01/13/19 Range/Units 09:35 09:35 WBC 8.9 (3.8-10.6) k/uL RBC 4.60 (3.80-5.40) m/uL Hgb 13.2 (11.4-16.0) gm/dL Hct 39.1 (34.0-46.0) % MCV 85.1 (80.0-100.0) fL MCH 28.6 (25.0-35.0) pg MCHC 33.6 (31.0-37.0) g/dL RDW 13.6 (11.5-15.5) % Plt Count 323 (150-450) k/uL Neutrophils % 73 % Lymphocytes % 19 % Monocytes % 3 % Eosinophils % 4 % Basophils % 1 % Neutrophils # 6.5 (1.3-7.7) k/uL Lymphocytes # 1.7 (1.0-4.8) k/uL Monocytes # 0.3 (0-1.0) k/uL Eosinophils # 0.3 (0-0.7) k/uL Basophils # 0.0 (0-0.2) k/uL Urine Color Yellow Urine Appearance Cloudy H (Clear) Urine pH 7.5 (5.0-8.0) Ur Specific [place] 1.018 (1.001-1.035) Urine Protein Trace H (Negative) Urine Glucose (UA) Negative (Negative) Urine Ketones Negative (Negative) Urine Blood Negative (Negative) Urine Nitrite Negative (Negative) Urine Bilirubin Negative (Negative) Urine Urobilinogen 2.0 (<2.0) mg/dL Ur Leukocyte Esterase Moderate H (Negative) Urine RBC 2 (0-5) /hpf Urine WBC 12 H (0-5) /hpf Ur Squamous Epith Cells 14 H (0-4) /hpf Amorphous Sediment Rare H (None) /hpf Urine Bacteria Occasional H (None) /hpf Urine Mucus Rare H (None) /hpf - Radiology Data Radiology results: report reviewed Single intrauterine gestation is in a sinus gestational sac and pole seen. Yolk sac not identified. No placenta previa is noted. Amniotic fluid is currently within normal. No cervical sending. Phenol biometry measurements are concordant felt to be normal. Heart rate was 1 49 bpm. Disposition Clinical Impression: Abdominal cramping affecting , Asymptomatic bacteriuria during Disposition: HOME SELF-CARE Condition: Good Instructions (If sedation given, give patient instructions): Urinary Tract Infection in (ED) Additional Instructions: Patient has a follow-up with your [facility]. Return to emergency department if any alarming signs or symptoms occur. Prescriptions: Cephalexin [Keflex] 500 mg PO BID #10 cap Is patient prescribed a controlled substance at d/c from ED?: No Referrals: Antonio Lim DO [Primary Care Provider] - 1-2 days
[2019-01-13 10:28] LABS: Basophils % (A) 1 %; Eosinophils # (A) 0.3 k/uL (0-0.7); Eosinophils % (A) 4 %; HCT 39.1 % (34.0-46.0); HGB 13.2 gm/dL (11.4-16.0); Lymphocytes # (A) 1.7 k/uL (1.0-4.8); Lymphocytes % (A) 19 %; MCH 28.6 pg (25.0-35.0); MCHC 33.6 g/dL (31.0-37.0); MCV 85.1 fL (80.0-100.0); Mean Platelet Volume 6.7; Monocytes # (A) 0.3 k/uL (0-1.0); Monocytes % (A) 3 %; Neutrophils # (A) 6.5 k/uL (1.3-7.7); Neutrophils % (A) 73 %; Platelet Count 323 k/uL (150-450); RDW 13.6 % (11.5-15.5); WBC 8.9 k/uL (3.8-10.6)
[2019-01-13 10:32] LABS: Amorphous Sediment,Urine Rare /hpf; Appearance,Urine Cloudy (Clear); Bacteria,Urine Occasional /hpf; Bilirubin,Urine Negative (Negative); Blood,Urine Negative (Negative); Color,Urine Yellow; Glucose,Urine (UA) Negative (Negative); Ketones,Urine Negative (Negative); Leukocyte Esterase,Urine Moderate (Negative); Mucus,Urine Rare /hpf; Nitrite,Urine Negative (Negative); PH, Urine 7.5 (5.0-8.0); Protein,Urine Trace (Negative); RBC,Urine 2 /hpf (0-5); Specific Gravity,Urine 1.018 (1.001-1.035); Squamous Epithelial Cell,Urine 14 /hpf (0-4)
--- NOTE | 2019-01-13 10:36 | US ---
EXAMINATION TYPE: US OB >= 14 wk fetus Second trimester DATE OF EXAM: 01/13/2019 COMPARISON: None CLINICAL HISTORY: PainIntermittent pelvic cramping x couple hours TECHNIQUE: Transabdominal (TA) GESTATIONAL AGE / DATING Physician Established: (14 weeks/0 days) EDC: 07/14/2019 Dates by LMP: Unknown Dates by First Scan: This is 1st scan Dates by Current Scan: (15 weeks/0 days) EDC: 07/07/2019 SURVEY IUP: Single PLACENTA: Anterior PREVIA: No Previa BALA: 11.0 cm Normal CERVICAL LENGTH (transabdominal: norm > 3.0cm): 3.3 cm BIOMETRY PRESENTATION: Vertex BPD: 2.6 cm 14 weeks / 4 days HC: 10.3 cm 14 weeks / 6 days AC: 8.6 cm 14 weeks / 6 days FL: 1.5 cm 14 weeks / 3 days ESTIMATED WEIGHT IN GRAMS: 104 grams ESTIMATED WEIGHT IN LBS/OZ: 0 lbs. 4 oz. WEIGHT PERCENTAGE BASED ON ESTABLISHED DATES: 84% HC/AC: 1.19 Normal FL/AC: 17.56 HEART RATE: 149 bpm RHYTHM: Normal Single live intrauterine gestation is identified as gestational sac and pole are seen. Yolk sac is not identified. No placenta previa is noted. Amniotic fluid index is calculated within normal biswas its. No cervical thinning is present. biometry measurements are concordant and felt within norm al limits. IMPRESSION: As above, no ultrasound evidence for complication.
== END 2019-01-13 11:00 | disposition home or self-care (01) ==
LOC: EC 09:04
DX: O26.891 Other specified pregnancy related conditions, first trimester (principal); R10.9 Unspecified abdominal pain; O99.89 Other specified diseases and conditions complicating pregnancy, childbirth and the puerperium; R82.71 Bacteriuria; O99.331 Smoking (tobacco) complicating pregnancy, first trimester; F17.200 Nicotine dependence, unspecified, uncomplicated; O99.511 Diseases of the respiratory system complicating pregnancy, first trimester; J45.909 Unspecified asthma, uncomplicated; Z3A.14 14 weeks gestation of pregnancy; Z91.011 Allergy to milk products; Z88.0 Allergy status to penicillin; Z88.1 Allergy status to other antibiotic agents; Z88.2 Allergy status to sulfonamides
CPT/HCPCS: 36415; 76805; 81001; 84702; 85025; 86900; 86901; 87086; 99284

== ENCOUNTER 2019-03-15 00:27 | Emergency (ER) | payer OTHER ==
[2019-03-15 00:42] VITALS: BP 116/64; PULSE 82; RESP 18; TEMP 98.4
[2019-03-15] MEDS ORDERED: LIDOCAINE 1% INJ 10MG/ML (20 ML MDV) SQ ONE (01:14)
--- NOTE | 2019-03-15 01:38 | ED ---
Skin/Abscess/FB HPI - General Chief complaint: Skin/Abscess/Foreign Body Stated complaint: Bump on Thigh, 22 weeks preg Time Seen by Provider: 03/15/19 00:48 Source: patient Mode of arrival: ambulatory Limitations: no limitations - History of Present Illness Initial comments: Alma is a previously healthy 23-year-old female currently 24 weeks gestation w ho presents to the emergency department today for evaluation of abscess to her left hip or thigh. She reports she noticed a little red bump about 2 or 3 days ago she initially thought it might be an ingrown hair. She reports she's been just trying to wash and keep that area clean however it's right on her pain Has become progressively more painful. Due to her she can't really examine that area but has noticed the swelling feels like its getting bigger and her pain is getting worse which prompted her to come to the ER for evaluation. Patient denies any other complaints she denies any systemic symptoms including fevers chills nausea or vomiting. She reports she still feeling baby move quite a bit she not having any lower urinary tract symptoms or any other complaints. Patient is scheduled to follow-up with her slitting machine feeder on Sunday for routine visit. - Related Data Home Medications Medication Instructions Recorded Confirmed Albuterol Inhaler [Ventolin 2 puff INHALATION RT-QID PRN 03/07/14 01/13/19 Inhaler] Qul-Rqvb-Xodql Acid 1 cap PO DAILY 01/13/19 01/13/19 [-U Capsule (formulary)] Previous Rx's Medication Instructions Recorded Cephalexin [Keflex] 500 mg PO BID #10 cap 01/13/19 Allergies Allergy/AdvReac Type Severity Reaction Status Date / Time Milk Containing Products Allergy Anaphylaxis Verified 03/15/19 00:42 Penicillins Allergy Rash/Hives Verified 03/15/19 00:42 sulfamethoxazole AdvReac Vomiting Verified 03/15/19 00:42 [From Bactrim] trimethoprim [From Bactrim] AdvReac Vomiting Verified 03/15/19 00:42 Review of Systems ROS Statement: Those systems with pertinent positive or pertinent negative responses have been documented in the HPI. ROS Other: All systems not noted in ROS Statement are negative. 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, pt states she has had one seizure 'about 4 years ago' History of Any Multi-Drug Resistant Organisms: None Reported Past Surgical History: Tonsillectomy Additional Past Surgical History / Comment(s): tonsillectomy 2010 Past Anesthesia/Blood Transfusion Reactions: No Reported Reaction Past Psychological History: No Psychological Hx Reported Smoking Status: Current every day smoker Past Alcohol Use History: None Reported Past Drug Use History: Marijuana - Past Family History Mother Family Medical History: No Reported History General Exam - General Exam Comments Initial Comments: Physical Exam GENERAL: Patient is well-developed and well-nourished. Patient is nontoxic and well-hydrated and is in no distress. HENT: Normocephalic, Atraumatic. EYES: PERRL, EOMI PULMONARY: Unlabored respirations CARDIOVASCULAR: There is a regular rate and rhythm without any murmurs gallops or rubs. ABDOMEN: Gravid uterus SKIN: Small abscess in left inner thigh at panty line - abscess with area of fluctuance approximately 1cm x 2cm, mild surrounding induration without erythema or signs of cellulitis : Deferred NEUROLOGIC: Patient is alert and oriented x3. Moving all extremities spontaneously MUSCULOSKELETAL: Normal extremities with adequate strength and full range of motion. No lower extremity swelling or edema. No calf tenderness. PSYCHIATRIC: Normal psychiatric evaluation. Limitations: no limitations Course Vital Signs 03/15/19 00:39 Temperature 98.4 F Pulse Rate 82 Respiratory 18 Rate Blood Pressure 116/64 O2 Sat by Pulse 98 Oximetry Procedures - Incision & Drainage Consent Obtained: verbal consent Site: lower extremity Size (cm): 2 Anesthetic Used: lidocaine 1% Amount (mLs): 3 I&D Cleaning Method: Betadine Sterile Field Used?: No Scalpel Used: #11 Needle Aspiration Performed?: Yes Irrigation Performed?: Yes I&D Drainage Obtained: Pus, Blood Packing: Iodoform Culture Obtained?: No Patient Tolerated Procedure: well Medical Decision Making - Medical Decision Making The patient was seen and evaluated history was obtained from patient Patient has a very small abscess in the left inner thigh a little bit of surrounding induration of tissue but no signs of cellulitis The area was cleansed, anesthetized and a 1 cm incision was made over the lateral surface of the abscess. Approximately 5 mL of purulent fluid was drained. The abscess was probed and packed with approximately 2 cm of iodoform gauze. She tolerated the procedure well Bedside ultrasound revealed an active fetus the heart rate in the 150s Patient's comfortable with plan for discharge home. Local wound care. She'll be reevaluated by her slitting machine feeder on Sunday at her regularly scheduled appointment. I advised her that time the packing can be removed from the abscess cavity. Disposition Clinical Impression: Abscess Disposition: HOME SELF-CARE Condition: Stable Instructions (If sedation given, give patient instructions): Abscess (ED) Is patient prescribed a controlled substance at d/c from ED?: No Referrals: Antonio Lim DO [Primary Care Provider] - 1-2 days Uriah Edmondson MD [STAFF PHYSICIAN] - 03/17/19
== END 2019-03-15 02:11 | disposition home or self-care (01) ==
LOC: EC 00:27
DX: O99.712 Diseases of the skin and subcutaneous tissue complicating pregnancy, second trimester (principal); L02.416 Cutaneous abscess of left lower limb; O99.512 Diseases of the respiratory system complicating pregnancy, second trimester; J45.909 Unspecified asthma, uncomplicated; O99.332 Smoking (tobacco) complicating pregnancy, second trimester; F17.200 Nicotine dependence, unspecified, uncomplicated; Z91.011 Allergy to milk products; Z88.0 Allergy status to penicillin; Z88.2 Allergy status to sulfonamides; Z3A.24 24 weeks gestation of pregnancy
CPT/HCPCS: 10060; 99283

== ENCOUNTER 2019-06-21 15:33 | Outpatient (CLI) | payer OTHER ==
[2019-06-21 18:58] VITALS: BP 131/80; PULSE 89; RESP 18; TEMP 98.2
--- NOTE | 2019-06-22 11:29 | P.MSEPDOC ---
Presenting Problems - Arrival Data Date of Arrival on Unit: 06/21/19 Time of Arrival on Unit: 15:30 Mode of Transport: Ambulatory - Complaint Comment: left groin pains. Medical History - Information : 2 Para: 1 Term: 1 : 0 Abortions: Spontaneous or Elective: 0 Number of Living Children: 1 - Gestational Age Gestational Age by ARTHUR (wks/days): 36 Weeks and 5 Days Review of Systems - Review of Systems Constitutional: No problems Breast: No problems ENT: No problems Cardiovascular: No problems Respiratory: No problems Gastrointestinal: No problems Genitourinary: No problems Musculoskeletal: No problems Neurological: No problems Skin: No problems Vital Signs - Temperature Temperature: 98.2 F Temperature Source: Oral - Pulse Right Brachial Pulse Rate: 89 Pulse Assessment Method: Automatic Cuff - Respirations Respiratory Rate: 18 Oxygen Delivery Method: Room Air O2 Sat by Pulse Oximetry: 98 - Blood Pressure Right Arm Blood Pressure: 131/80 Blood Pressure Mean: 97 Blood Pressure Source: Automatic Cuff Medical Screen Scoring (Pre) - Cervical Exam Dilation: 0 cm = 0 Membranes: Intact - Uterine Contractions Frequency: N/A Duration: N/A Intensity: N/A - Maternal Vital Signs Maternal Temperature: N/A Maternal Blood Pressure: N/A Signs of Preeclampsia: N/A Maternal Respirations: N/A - Maternal Trauma Maternal Trauma: N/A - Assessment - Baby A Baseline FHR: 135 Heart Rate - NICHD Category: Category I (Normal) = 0 NST: Reactive Position: N/A Station: N/A - Total Score - Baby A Total Score - Baby A: 0 - Total Score - Baby B Total Score - Baby B: 0 - Total Score - Baby C Total Score - Baby C: 0 - Level of Risk - Baby A Level of Risk - Baby A: Low (0-5) - Level of Risk - Baby B Level of Risk - Baby B: Low (0-5) - Level of Risk - Baby C Level of Risk - Baby C: Low (0-5) Physician Notification (Pre) - Physician Notified Physician Notified Date: 06/21/19 Physician Notified Time: 16:30 Spoke With: elin New Order Received: Yes - Notification Comment Comment: discharge home. to keep next sched appt for dr pena. may use monistat for yeast infection. Disposition - Disposition OB Disposition: Discharge to home Discharge Date: 06/21/19 Discharge Time: 16:40 I agree with the RN Medical Screening Exam: Yes Risk & Benefit of care provided described in d/c instruction: No Diagnosis: PELVIC AND PERINEAL PAIN
== END 2019-06-21 16:40 | disposition home or self-care (01) ==
LOC: FBPOP 15:33
PROVIDERS: ATTEND Obstetrics & Gynecology
DX: O99.89 Other specified diseases and conditions complicating pregnancy, childbirth and the puerperium (principal); R10.2 Pelvic and perineal pain; Z3A.36 36 weeks gestation of pregnancy
CPT/HCPCS: 59025; G0463; 99213

== ENCOUNTER 2019-07-04 10:33 | Inpatient (IN) | payer OTHER ==
[2019-07-04] MEDS ORDERED: METHYLERGONOVINE 0.2 MG/ML 1 ML AMP IM PRN (10:46)
[2019-07-04] MEDS ORDERED: TERBUTALINE 1 MG/ML VIAL SQ PRN (10:46)
[2019-07-04] MEDS ORDERED: LIDOCAINE 0.5% (PF) 5 MG/ML (50 ML SDV) SQ PRN (10:46)
[2019-07-04] MEDS ORDERED: OXYTOCIN 10 UNIT/ML 1 ML VIAL IM PRN (10:46)
[2019-07-04] MEDS ORDERED: CARBOPROST TROMETHAMINE 250 MCG/ML 1 ML AMP IM PRN (10:46)
[2019-07-04] MEDS ORDERED: OXYTOCIN 30 UNITS/500 ML NS 30 UNIT in SALINE 1 500ML.BAG IV SCH (11:00)
[2019-07-04] MEDS: LACTATED RINGERS 1,000 ML IV SCH ×2 (11:05→11:33)
[2019-07-04 11:27] LABS: Basophils # (A) 0.1 k/uL (0-0.2); Basophils % (A) 0 %; Eosinophils # (A) 0.2 k/uL (0-0.7); Eosinophils % (A) 1 %; HCT 37.2 % (34.0-46.0); HGB 12.4 gm/dL (11.4-16.0); Lymphocytes # (A) 1.9 k/uL (1.0-4.8); Lymphocytes % (A) 12 %; MCH 28.5 pg (25.0-35.0); MCHC 33.3 g/dL (31.0-37.0); MCV 85.4 fL (80.0-100.0); Monocytes # (A) 0.4 k/uL (0-1.0); Monocytes % (A) 2 %; Neutrophils # (A) 13.1 k/uL (1.3-7.7); Neutrophils % (A) 83 %; Platelet Count 314 k/uL (150-450); Poikilocytosis Slight; RBC 4.36 m/uL (3.80-5.40); WBC 15.8 k/uL (3.8-10.6)
[2019-07-04 11:33] VITALS: BMI 32.3
[2019-07-04] MEDS ORDERED: SODIUM CHLORIDE 0.9% 100 ML BAG ONE (11:40)
[2019-07-04] MEDS ORDERED: ROPIVACAINE 5MG/ML 20ML VIAL ONE (11:40)
[2019-07-04] MEDS ORDERED: fentaNYL (PF) 50 MCG/ML 5 ML AMP ONE (11:40)
--- NOTE | 2019-07-04 12:35 | P.HPOB ---
History of Present Illness H&P Date: 07/04/19 Chief Complaint: 38-4/7 weeks, labor The patient is a 23-year-old 2 para 1001 admitted at 38-4/7 weeks as established by last menstrual period and confirmed by 18 week ultrasound. She is admitted in active labor with all signs reassuring. Her has been uncomplicated and group B strep status is negative. Obstetrical history: 2 para 1001 with 1 previous term delivery without complications. EDC of 07/14/2019 was established by last menstrual period and confirmed by 18 week ultrasound. Laboratory workup demonstrates a blood type of A+ with a negative antibody screen. Rubella status is immune. The remainder of the laboratory workup was within normal limits. One hour Glucola was normal and group B strep status is negative. Gynecologic history: Unremarkable with no history of any infections to include STDs. Review of Systems Review of systems is confined to history of present illness. 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 pt denies seizures, states she "passed out" once at age 18 History of Any Multi-Drug Resistant Organisms: None Reported Past Surgical History: Tonsillectomy Additional Past Surgical History / Comment(s): tonsillectomy 2009 Past Anesthesia/Blood Transfusion Reactions: No Reported Reaction Past Psychological History: No Psychological Hx Reported Smoking Status: Current every day smoker Past Alcohol Use History: None Reported Past Drug Use History: Marijuana Additional Drug Use History / Comment(s): last used 1 week ago - Past Family History Mother Family Medical History: No Reported History Medications and Allergies Home Medications Medication Instructions Recorded Confirmed Type Albuterol Inhaler [Ventolin 2 puff INHALATION RT-QID PRN 03/07/14 06/21/19 History Inhaler] Arl-Vxyy-Occiv Acid 1 cap PO DAILY 01/13/19 06/21/19 History [-U Capsule (formulary)] Allergies Allergy/AdvReac Type Severity Reaction Status Date / Time Milk Containing Products Allergy Anaphylaxis Verified 03/15/19 00:42 Penicillins Allergy Rash/Hives Verified 03/15/19 00:42 sulfamethoxazole AdvReac Vomiting Verified 03/15/19 00:42 [From Bactrim] trimethoprim [From Bactrim] AdvReac Vomiting Verified 03/15/19 00:42 Exam Vital Signs Temp Pulse Resp BP Pulse Ox 07/04/19 10:52 98.3 F 93 18 130/84 98 Intake and Output 07/03/19 07/04/19 07/04/19 22:59 06:59 14:59 Other: Weight 87.997 kg In general, this is a well-developed, well-nourished white female in no acute distress. Her heart has a regular rhythm and rate without murmur. Her lungs are clear to auscultation bilaterally in all [place]. Her abdomen is gravid, nondistended, has normal active bowel sounds, is soft, nontender, and without any palpable masses aside from uterine fundus. Her extremities are without any cyanosis, clubbing, or significant edema and are nontender to palpation bilaterally. Digital cervical examination at this time demonstrates her surgery approximate 9 cm dilated, 90% effaced, with the vertex in presentation at 0 to - 1 station. Artificial rupture of membranes is carried out demonstrating clear fluid. Results Result Diagrams: 07/04/19 11:03 Abnormal Lab Results - Last 24 Hours (Table) 07/04/19 Range/Units 11:03 WBC 15.8 H (3.8-10.6) k/uL Neutrophils # 13.1 H (1.3-7.7) k/uL Assessment and Plan (1) Active labor at term Current Visit: Yes Status: Acute Code(s): [id number] - SNOMED Code(s): 67735557 Plan: The patient is admitted for active management of labor. She has undergone a rtificial rupture of membranes for clear fluid. Labors progressing on its own and will be followed closely. Epidural catheter has been placed for analgesia. She will continue to have close maternal and surveillance and expectant management will be practiced.
[2019-07-04] MEDS ORDERED: ZOLPIDEM 5 MG TAB PO PRN (14:41)
[2019-07-04] MEDS ORDERED: diphenhydrAMINE 25 MG CAP PO PRN (14:41)
[2019-07-04] MEDS ORDERED: diphenhydrAMINE 50 MG CAP PO PRN (14:41)
[2019-07-04] MEDS ORDERED: HYDROCORTISONE 2.5% RECTAL CREAM 30 GM TUBE RECTAL PRN (14:41)
[2019-07-04] MEDS ORDERED: HYDROcodone/APAP 5-325MG 1 EACH TAB PO PRN (14:41)
[2019-07-04] MEDS ORDERED: ACETAMINOPHEN TAB 325 MG TAB PO PRN (14:41)
[2019-07-04] MEDS ORDERED: SIMETHICONE 80 MG CHEWABLE PO PRN (14:41)
[2019-07-04] MEDS ORDERED: HYDROcodone/APAP 7.5-325MG 1 EACH TAB PO PRN (14:41)
[2019-07-04] MEDS ORDERED: diphenhydrAMINE 50 MG/ML 1 ML VIAL IVP PRN ×2 (14:41)
[2019-07-04] MEDS ORDERED: BENZOCAINE/MENTHOL SPRAY 1 GM/SPRAY AEROSOL TOPICAL PRN (14:41)
[2019-07-04] MEDS ORDERED: WITCH HAZEL 1 EACH MED..PAD TOPICAL PRN (14:41)
[2019-07-04] MEDS ORDERED: LANOLIN CREAM 5 GM TUBE TOPICAL PRN (14:41)
--- NOTE | 2019-07-04 14:44 | P.PROBDLV ---
Vaginal Delivery Note - . Vaginal Delivery Note: The patient is a 23-year-old 2 para 1001 admitted at 38-4/7 weeks by good dating parameters. She is admitted in active labor with all signs reassuring. Her was uncomplicated and group B strep status is negative. On labor and delivery, she had an epidural catheter placed for analgesia. She underwent artificial rupture of membranes demonstrating clear fluid. She progressed over the course of the next hour to complete and pushed over the course of 1 contraction to a normal spontaneous vaginal delivery of a viable 7 lbs. 8 oz. baby boy with Apgars of 9 at 1 minute and 9 at 5 minutes delivered in the direct occiput anterior position. The placenta was delivered spontaneously, intact, and grossly normal with a grossly normal three-vessel cord inserted approximately 6-7 cm from the margin of the placental disc. The membranes were somewhat lacerated but appeared to be all present. There are no lacerations the perineum, vagina, or cervix. Estimated blood loss for the case was approximately 150 mL. There are no complications. All sponge, instrument, and needle counts were correct. Both mother and are resting comfortably in recovery.
[2019-07-04] MEDS ORDERED: OXYTOCIN 20 UNITS/1000 ML NS 1,000 ML IV SCH (14:45)
[2019-07-04] MEDS: IBUPROFEN 600 MG TAB PO PRN ×2 (14:53→23:53)
[2019-07-04] MEDS: SENNOSIDES-DOCUSATE SODIUM 1 EACH TAB PO SCH (19:53)
[2019-07-05] MEDS: IBUPROFEN 600 MG TAB PO PRN ×3 (07:02→18:57)
[2019-07-05] MEDS: SENNOSIDES-DOCUSATE SODIUM 1 EACH TAB PO SCH ×2 (08:54→19:52)
--- NOTE | 2019-07-05 09:21 | P.DS ---
Providers Date of admission: 07/04/19 10:51 Expected date of discharge: 07/05/19 Attending physician: Uriah Edmondson Primary care physician: Stated None - Discharge Diagnosis(es) (1) Active labor at term Current Visit: Yes Status: Acute (2) Normal spontaneous vaginal delivery Current Visit: Yes Status: Acute (3) Term Current Visit: No Status: Acute Hospital Course: This is a pleasant 23-year-old 2 para 1001 that was admitted to labor and delivery at 38-4/7 weeks in active labor. She had been uncomplicated and she had been receiving routine care. She group beta strep status is negative. Once admitted patient requested epidural placement for analgesia. This was placed without difficulty by the anesthesia department. She underwent artificial rupture of membranes revealing clear fluid. She progressed to complete began pushing and had normal spontaneous vaginal delivery of a viable male infant weight of 7 lbs. 8 oz. with Apgars of 9 and 9 at one and 5 minutes respectively. A small labial laceration was noted this was not repaired as it was hemostatic. Patient's course has been uneventful. She is ambulating and voiding without difficulty. She is tolerating a regular diet without nausea or vomiting. She states her pain is controlled with oral ibuprofen. She is breast-feeding Patient Condition at Discharge: Good Plan - Discharge Summary New Discharge Prescriptions: No Action Albuterol Inhaler [Ventolin Inhaler] 2 puff INHALATION RT-QID PRN PRN Reason: Allergic Reaction Drz-Ormp-Nilrm Acid [-U Capsule (formulary)] 1 cap PO DAILY Discharge Medication List Albuterol Inhaler [Ventolin Inhaler] 2 puff INHALATION RT-QID PRN 03/07/14 [H istory] Qto-Jsyv-Qoxgv Acid [-U Capsule (formulary)] 1 cap PO DAILY 01/13/19 [History] Follow up Appointment(s)/Referral(s): Uriah Edmondson MD [STAFF PHYSICIAN] - 6 Weeks Patient Instructions/Handouts: Vaginal Delivery (DC), Vaginal Delivery (GEN) Discharge Disposition: HOME SELF-CARE
[2019-07-05 23:54] VITALS: TEMP 97.9
[2019-07-06] MEDS: IBUPROFEN 600 MG TAB PO PRN ×2 (06:06→14:58)
[2019-07-06 07:55] VITALS: BP 106/65; PULSE 65; RESP 18
[2019-07-06] MEDS: SENNOSIDES-DOCUSATE SODIUM 1 EACH TAB PO SCH (08:07)
--- NOTE | 2019-07-06 12:43 | P.PNOBGVD ---
Subjective - Subjective Principal diagnosis: PPD 2 Interval history: Patient is doing well . She is ambulating and voiding without difficulty. She is pumping and bottlefeeding as her infant was taken back to the special care nursery yesterday afternoon. Patient is without complaints. Patient reports: Reports appetite normal, Reports voiding normally, Reports pain well controlled, Reports ambulating normally : doing well (In special care nursery on oxygen.) Objective - Latest Vital Signs Latest vital signs: Vital Signs Temp Pulse Resp BP 07/06/19 07:53 97.9 F 65 18 106/65 07/05/19 23:52 97.9 F 97 16 137/88 07/05/19 16:00 98.3 F 83 18 124/70 Intake and Output 07/05/19 07/06/19 07/06/19 22:59 06:59 14:59 Other: # Voids 1 - Exam Extremities: Present: normal Abdomen: Present: normal appearance Uterus: Present: normal, firm Assessment and Plan (1) Active labor at term Current Visit: Yes Status: Acute Code(s): RFK1090 - SNOMED Code(s): 74927835 (2) Normal spontaneous vaginal delivery Current Visit: Yes Status: Acute Code(s): O80 - ENCOUNTER FOR FULL-TERM UNCOMPLICATED DELIVERY SNOMED Code(s): 63854356 (3) Term Current Visit: No Status: Acute Code(s): Z34.80 - ENCOUNTER FOR SUPRVSN OF NORMAL , UNSP TRIMESTER SNOMED Code(s): 57219831 Plan: Plan discharge home later today. care was discussed yesterday and we will plan follow-up with Dr. Edmondson in 6 weeks.
== END 2019-07-06 15:05 | disposition home or self-care (01) | DRG 807 ==
LOC: FBPOP 10:33 → 4FBP 10:51
PROVIDERS: ADMIT Obstetrics & Gynecology; ATTEND Obstetrics & Gynecology
PROC: 10E0XZZ Delivery of Products of Conception, External Approach (ICD-10-PCS; principal; 2019-07-04)
PROC: 3E0R3NZ Introduction of Analgesics, Hypnotics, Sedatives into Spinal Canal, Percutaneous Approach (ICD-10-PCS; principal; 2019-07-04)
PROC: 00HU33Z Insertion of Infusion Device into Spinal Canal, Percutaneous Approach (ICD-10-PCS; principal; 2019-07-04)
PROC: 10907ZC Drainage of Amniotic Fluid, Therapeutic from Products of Conception, Via Natural or Artificial Opening (ICD-10-PCS; principal; 2019-07-04)
DX: O99.52 Diseases of the respiratory system complicating childbirth (principal); Z37.0 Single live birth; O99.334 Smoking (tobacco) complicating childbirth; Z3A.38 38 weeks gestation of pregnancy; J45.909 Unspecified asthma, uncomplicated; F17.200 Nicotine dependence, unspecified, uncomplicated; Z91.011 Allergy to milk products; Z79.899 Other long term (current) drug therapy; Z88.0 Allergy status to penicillin; Z88.2 Allergy status to sulfonamides
CPT/HCPCS: 59025; 85025; 86850; 86900; 86901; 99213

== ENCOUNTER 2019-10-29 16:52 | Emergency (ER) | payer OTHER ==
[2019-10-29 17:01] VITALS: BP 117/63; PULSE 120; RESP 18; TEMP 98.2
[2019-10-29] MEDS ORDERED: DEXAMETHASONE SOD PHOSPHATE 10 MG/ML 1 ML VIAL IM STA (17:26)
--- NOTE | 2019-10-29 17:26 | ED ---
Allergic Reaction HPI - General Chief complaint: Allergic Reaction Stated complaint: Allergic reaction Time Seen by Provider: 10/29/19 17:02 Source: patient Mode of arrival: ambulatory Limitations: no limitations - History of Present Illness Initial Comments: Patient is a 24-year-old female presenting to the emergency department with a chief complaint of an ALLERGIC reaction. Patient reports she accidentally ate dairy which she has a possible anaphylactic reaction to. Patient reports immediately she took Benadryl and injected her EpiPen. Patient reports no changes in her difficulty breathing or swallowing. She does report a generalized urticaria with some itching. Patient denies taking any other medications alleviate the symptoms. Patient denies any respiratory difficulty at this time. - Related Data Home Medications Medication Instructions Recorded Confirmed Albuterol Inhaler [Ventolin 2 puff INHALATION RT-QID PRN 03/07/14 06/21/19 Inhaler] Glu-Zpmk-Bcobb Acid 1 cap PO DAILY 01/13/19 06/21/19 [-U Capsule (formulary)] Previous Rx's Medication Instructions Recorded EPINEPHrine (Auto Inject) [Epipen] 0.3 mg IM ONCE PRN #1 pen 10/29/19 Allergies Allergy/AdvReac Type Severity Reaction Status Date / Time Milk Containing Products Allergy Anaphylaxis Verified 10/29/19 17:00 Penicillins Allergy Rash/Hives Verified 10/29/19 17:00 sulfamethoxazole AdvReac Vomiting Verified 10/29/19 17:00 [From Bactrim] trimethoprim [From Bactrim] AdvReac Vomiting Verified 10/29/19 17:00 Review of Systems ROS Statement: Those systems with pertinent positive or pertinent negative responses have been documented in the HPI. ROS Other: All systems not noted in ROS Statement are negative. 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 pt denies seizures, states she "passed out" once at age 18 History of Any Multi-Drug Resistant Organisms: None Reported Past Surgical History: Tonsillectomy Additional Past Surgical History / Comment(s): tonsillectomy 2009 Past Anesthesia/Blood Transfusion Reactions: No Reported Reaction Past Psychological History: No Psychological Hx Reported Smoking Status: Current every day smoker Past Alcohol Use History: Rare Past Drug Use History: Marijuana - Past Family History Mother Family Medical History: No Reported History General Exam Limitations: no limitations General appearance: alert Head exam: Present: atraumatic, normocephalic, normal inspection Eye exam: Present: normal appearance, PERRL, EOMI Pupils: Present: normal accommodation ENT exam: Present: normal exam, normal oropharynx (Able to visualize posterior pharynx. No tonsil enlargement.), mucous membranes moist, TM's normal bilaterally, normal external ear exam Neck exam: Present: normal inspection, full ROM Respiratory exam: Present: normal lung sounds bilaterally. Absent: respiratory distress, wheezes Cardiovascular Exam: Present: regular rate, normal rhythm, normal heart sounds Extremities exam: Present: normal inspection, full ROM Back exam: Present: normal inspection, full ROM Neurological exam: Present: alert, oriented X3 Psychiatric exam: Present: normal affect, normal mood Skin exam: Present: warm, dry, intact, normal color, urticaria (Diffuse) Course Vital Signs 10/29/19 16:57 Temperature 98.2 F Pulse Rate 120 H Respiratory 18 Rate Blood Pressure 117/63 O2 Sat by Pulse 95 Oximetry Medical Decision Making - Medical Decision Making Patient is a 24-year-old female presenting to the emergency department with a chief complaint of an ALLERGIC reaction. Patient accidentally ate dairy and developed an ALLERGIC reaction. She injected an EpiPen and took Benadryl. On initial evaluation patient is not in any respiratory distress. Denies any trouble swallowing or breathing. She does have a diffuse urticaria but is not a ble to resolve. Patient was given 10 mg of Decadron. On reevaluation the urticaria has resolved from the extremities and is now gradually resolving from the trunk as well. Patient denies any trouble swallowing or breathing at this time. Patient states that she feels great. Patient given prescription for another EpiPen in case she needs to use it. Strict return parameters were thoroughly discussed with patient was understanding and agreeable. Case discussed with physician. Disposition Clinical Impression: Allergic reaction to food Disposition: HOME SELF-CARE Condition: Stable Instructions (If sedation given, give patient instructions): Anaphylaxis (ED) Additional Instructions: Use prescribed medication as needed. Follow with primary care. Please return to emergency department if symptoms worsen. Prescriptions: EPINEPHrine (Auto Inject) [Epipen] 0.3 mg IM ONCE PRN #1 pen PRN Reason: Anaphylaxis Is patient prescribed a controlled substance at d/c from ED?: No Referrals: Antonio Lim DO [Primary Care Provider] - 1-2 days Time of Disposition: 18:02
== END 2019-10-29 18:00 | disposition home or self-care (01) ==
LOC: EC 16:52
DX: T78.1XXA Other adverse food reactions, not elsewhere classified, initial encounter (principal); L50.0 Allergic urticaria; J45.909 Unspecified asthma, uncomplicated; F17.200 Nicotine dependence, unspecified, uncomplicated; Z88.0 Allergy status to penicillin; Z88.1 Allergy status to other antibiotic agents; Z88.2 Allergy status to sulfonamides; Z91.011 Allergy to milk products
CPT/HCPCS: 99283; 96372; J1100

== ENCOUNTER 2020-09-13 18:47 | Emergency (ER) | payer OTHER ==
--- NOTE | 2020-09-13 19:51 | XR ---
EXAMINATION TYPE: XR chest 2V DATE OF EXAM: 09/13/2020 COMPARISON: 11/26/2017 HISTORY: Short of breath TECHNIQUE: 2 views FINDINGS: Heart and mediastinum are normal. Lungs are clear. Diaphragm is normal. Bony thorax appears normal. IMPRESSION: Normal chest. No change.
[2020-09-13] MEDS ORDERED: methylPREDNISolone SOD SUCCI 125 MG/2 ML VIAL IM STA (20:12)
[2020-09-13] MEDS ORDERED: IPRATROPIUM-ALBUTEROL 3 ML NEB INHALATION STA (20:13)
[2020-09-13] MEDS ORDERED: ACETAMINOPHEN TAB 500 MG TAB PO STA (20:15)
--- NOTE | 2020-09-13 20:17 | ED ---
General Adult HPI - General Chief complaint: Shortness of Breath Stated complaint: asthma/med refill Time Seen by Provider: 09/13/20 20:02 Source: patient, RN notes reviewed Mode of arrival: ambulatory Limitations: no limitations - History of Present Illness Initial comments: 24-year-old female presents to the emergency department for a chief complaint of shortness of breath. Patient reports she has a history of asthma and this feels like an asthma exacerbation. Patient states that she developed this today. She has been using her breathing treatments which helped for a short time but then the symptoms returned. Patient does not have albuterol inhaler at home and cannot see her doctor until . Patient denies any significant cough. De nies chest pain. States she does feel warm but has not had fevers at home.Patient has no other complaints at this time including chest pain, abdominal pain, nausea or vomiting, headache, or visual changes. - Related Data Home Medications Medication Instructions Recorded Confirmed Albuterol Inhaler [Ventolin Hfa 1 - 2 puff INHALATION RT-Q6H PRN 09/13/20 09/13/20 Inhaler] Apri 0.15-0.03 Tablet 1 tab PO DAILY 09/13/20 09/13/20 Previous Rx's Medication Instructions Recorded EPINEPHrine (Auto Inject) [Epipen] 0.3 mg IM ONCE PRN #1 pen 10/29/19 Albuterol Inhaler [Ventolin Hfa 2 puff INHALATION RT-QID PRN #1 09/13/20 Inhaler] inhaler Azithromycin [Zithromax Z-pack (6 250 mg PO DIRECTED #6 tab 09/13/20 tabs)] predniSONE 50 mg PO DAILY #5 tablet 09/13/20 Allergies Allergy/AdvReac Type Severity Reaction Status Date / Time Milk Containing Products Allergy Anaphylaxis Verified 09/13/20 20:40 Penicillins Allergy Rash/Hives Verified 09/13/20 20:40 sulfamethoxazole AdvReac Vomiting Verified 09/13/20 20:40 [From Bactrim] trimethoprim [From Bactrim] AdvReac Vomiting Verified 09/13/20 20:40 Review of Systems ROS Statement: Those systems with pertinent positive or pertinent negative responses have been documented in the HPI. ROS Other: All systems not noted in ROS Statement are negative. 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 pt denies seizures, states she "passed out" once at age 18 History of Any Multi-Drug Resistant Organisms: None Reported Past Surgical History: Tonsillectomy Additional Past Surgical History / Comment(s): tonsillectomy 2010 Past Anesthesia/Blood Transfusion Reactions: No Reported Reaction Past Psychological History: No Psychological Hx Reported Past Alcohol Use History: Rare Past Drug Use History: Marijuana - Past Family History Mother Family Medical History: No Reported History General Exam Limitations: no limitations General appearance: alert, in no apparent distress Head exam: Present: atraumatic, normocephalic, normal inspection Eye exam: Present: normal appearance, PERRL, EOMI. Absent: scleral icterus, conjunctival injection, periorbital swelling ENT exam: Present: normal exam, mucous membranes moist Neck exam: Present: normal inspection, full ROM. Absent: tenderness, meningismus, lymphadenopathy Respiratory exam: Present: wheezes (Wheezing noted throughout lung lebron). Absent: respiratory distress, rales, rhonchi, stridor Cardiovascular Exam: Present: regular rate, normal rhythm, normal heart sounds. Absent: systolic murmur, diastolic murmur, rubs, gallop, clicks GI/Abdominal exam: Present: soft, normal bowel sounds. Absent: distended, tenderness, guarding, rebound, rigid Course Vital Signs 09/13/20 09/13/20 09/13/20 18:50 20:31 20:55 Temperature 99.4 F Pulse Rate 108 H 100 100 Respiratory 18 Rate Blood Pressure 126/74 O2 Sat by Pulse 97 Oximetry 09/13/20 21:00 Temperature 98.9 F Pulse Rate 95 Respiratory 18 Rate Blood Pressure 122/62 O2 Sat by Pulse 98 Oximetry Medical Decision Making - Medical Decision Making Vitals are stable, patient is 97-98% on room air. She does have wheezing noted bilaterally however no respiratory distress. Guido virus influenza negative. Chest x-ray shows a normal chest, no change. Patient was given DuoNeb and had significant improvement in symptoms. Wheezing has improved. Patient is actually standing at bedside waiting for discharge. Patient was given Cipro at all here in the emergency room. She is requesting a Z-Deshawn stating she usually needs this for these symptoms. I did discuss that there is low chance of bacterial pneumonia however patient is requesting and will be given a prescription. She was written a Rx of her steroids. She is out of her inhaler and this was refilled. She will return here for any worsening symptoms. - Lab Data Lab Results 09/13/20 Range/Units 20:12 Coronavirus (PCR) Not Detected (Not Detectd) Influenza Type A RNA Not Detected (Not Detectd) Influenza Type B (PCR) Not Detected (Not Detectd) Disposition Clinical Impression: Asthma exacerbation Disposition: HOME SELF-CARE Condition: Good Instructions (If sedation given, give patient instructions): Asthma (ED) Additional Instructions: Please take medications as directed. Continue breathing treatments at home. If youre having worsening symptoms return to the emergency room. Prescriptions: predniSONE 50 mg PO DAILY #5 tablet Albuterol Inhaler [Ventolin Hfa Inhaler] 2 puff INHALATION RT-QID PRN #1 inhaler PRN Reason: Shortness Of Breath Azithromycin [Zithromax Z-pack (6 tabs)] 250 mg PO DIRECTED #6 tab Is patient prescribed a controlled substance at d/c from ED?: No Referrals: Antonio Lim DO [Primary Care Provider] - 1-2 days Time of Disposition: 21:39
[2020-09-13 21:03] LABS: SARS-CoV-2 RNA Rapid Abbott Not Detected (Not Detectd)
[2020-09-13 21:19] VITALS: TEMP 98.9
[2020-09-13] MEDS ORDERED: AZITHROMYCIN 500 MG TAB PO STA (21:39)
[2020-09-13 22:15] VITALS: BP 124/74; PULSE 71; RESP 20
== END 2020-09-13 22:15 | disposition home or self-care (01) ==
LOC: EC 18:47
DX: J45.901 Unspecified asthma with (acute) exacerbation (principal); Z88.0 Allergy status to penicillin; Z88.1 Allergy status to other antibiotic agents; Z88.2 Allergy status to sulfonamides; Z91.011 Allergy to milk products; Z20.828 Contact with and (suspected) exposure to other viral communicable diseases
CPT/HCPCS: 94640; 87502; 87635; 71046; 99285; 96372; J2930

== ENCOUNTER 2021-11-11 13:44 | Emergency (ER) | payer OTHER ==
[2021-11-11] MEDS ORDERED: ACETAMINOPHEN TAB 325 MG TAB PO STA (15:53)
--- NOTE | 2021-11-11 15:58 | ED ---
General Adult HPI - General Chief complaint: Recheck/Abnormal Lab/Rx Stated complaint: fever Time Seen by Provider: 11/11/21 15:48 Source: patient, RN notes reviewed, old records reviewed Mode of arrival: ambulatory Limitations: no limitations - History of Present Illness Initial comments: Well-appearing 26-year-old female in no acute distress presents to the emergency room with 6 days of headaches. She states diarrhea started yesterday but denies nausea or vomiting. She states that she went to urgent care twice this week and had a negative Covid tests. She does feel better today after rest however she has concerned for a viral illness and wants to attend a family shower. She does smoke cigarettes but denies alcohol use. She has a history of asthma but has not been needing to use her rescue inhaler. -: days(s) (6) Location: head Radiation: non-radiation Severity scale (1-10): 0 Consistency: now resolved Improves with: rest Worsens with: none Associated Symptoms: fever/chills, headaches, other (body aches, diarrhea) - Related Data Home Medications Medication Instructions Recorded Confirmed Acetaminophen Tab [Tylenol Tab] 1,000 mg PO Q6HR PRN 11/11/21 11/11/21 Allergies Allergy/AdvReac Type Severity Reaction Status Date / Time Milk Containing Products Allergy Anaphylaxis Verified 11/11/21 17:21 Penicillins Allergy Rash/Hives Verified 11/11/21 17:21 sulfamethoxazole AdvReac Vomiting Verified 11/11/21 17:21 [From Bactrim] trimethoprim [From Bactrim] AdvReac Vomiting Verified 11/11/21 17:21 Review of Systems ROS Statement: Those systems with pertinent positive or pertinent negative responses have been documented in the HPI. ROS Other: All systems not noted in ROS Statement are negative. 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 pt denies seizures, states she "passed out" once at age 18 History of Any Multi-Drug Resistant Organisms: None Reported Past Surgical History: Tonsillectomy Additional Past Surgical History / Comment(s): tonsillectomy 2010 Past Anesthesia/Blood Transfusion Reactions: No Reported Reaction Past Psychological History: No Psychological Hx Reported Past Alcohol Use History: Rare Past Drug Use History: Marijuana - Past Family History Mother Family Medical History: No Reported History General Exam Limitations: no limitations General appearance: alert, in no apparent distress Head exam: Present: atraumatic, normocephalic, normal inspection Eye exam: Present: normal appearance, EOMI. Absent: scleral icterus, conjunctival injection, nystagmus, periorbital swelling, periorbital tenderness ENT exam: Present: normal exam, normal oropharynx, mucous membranes moist Neck exam: Present: normal inspection, full ROM. Absent: tenderness, meningismus, lymphadenopathy, thyromegaly Respiratory exam: Present: normal lung sounds bilaterally. Absent: respiratory distress, wheezes, rales, rhonchi, stridor, chest wall tenderness, accessory muscle use Cardiovascular Exam: Present: regular rate, normal rhythm, normal heart sounds. Absent: systolic murmur, diastolic murmur, rubs, gallop, clicks, JVD GI/Abdominal exam: Present: soft, normal bowel sounds. Absent: distended, tenderness, guarding, rebound, rigid Extremities exam: Present: normal capillary refill. Absent: pedal edema Back exam: Present: full ROM. Absent: tenderness Neurological exam: Present: alert, oriented X3 Psychiatric exam: Present: normal affect, normal mood Skin exam: Present: warm, dry, intact, normal color. Absent: rash, cyanosis, diaphoretic Course Vital Signs 11/11/21 11/11/21 11/11/21 15:15 17:37 17:55 Temperature 99.3 F 98.5 F 98.5 F Pulse Rate 97 72 72 Respiratory 16 18 18 Rate Blood Pressure 118/78 116/77 116/77 O2 Sat by Pulse 99 99 99 Oximetry Medical Decision Making - Medical Decision Making Well-appearing 26-year-old female in no acute distress presents with headaches for 6 days and diarrhea since yesterday. She denies any abdominal pain, nausea or vomiting. Patient is positive for coronavirus in the emergency room today. Urinalysis shows no signs of dehydration or infection. Urine test is negative. Patient does not meet criteria for monoclonal antibody infusion. She was given Tylenol in the emergency room. Her oxygen saturation is 99% on room air. Vital signs are stable. She was instructed to take vitamin C, vitamin D and zinc for immune health. Increase her fluid intake. Return to the emergency room with any new or worsening symptoms. Case discussed with Dr. Haines - Lab Data Lab Results 11/11/21 11/11/21 11/11/21 Range/Units 15:19 16:00 16:00 Urine Color Yellow Urine Appearance Clear (Clear) Urine pH 5.5 (5.0-8.0) Ur Specific Phenix 1.031 (1.001-1.035) Urine Protein Trace H (Negative) Urine Glucose (UA) Negative (Negative) Urine Ketones Negative (Negative) Urine Blood Negative (Negative) Urine Nitrite Negative (Negative) Urine Bilirubin Negative (Negative) Urine Urobilinogen <2.0 (<2.0) mg/dL Ur Leukocyte Esterase Small H (Negative) Urine RBC <1 (0-5) /hpf Urine WBC 2 (0-5) /hpf Ur Squamous Epith Cells 3 (0-4) /hpf Hyaline Casts 1 (0-2) /lpf Urine Mucus Rare H (None) /hpf Urine HCG, Qual Not Detected (Not Detectd) Influenza Type A (PCR) Not Detected (Not Detectd) Influenza Type B (PCR) Not Detected (Not Detectd) RSV (PCR) Not Detected (Not Detectd) SARS-CoV-2 (PCR) Detected A (Not Detectd) Disposition Clinical Impression: COVID-19 Clinical Impression: (Ruled Out): COVID-19 affecting childbirth Disposition: HOME SELF-CARE Condition: Good Instructions (If sedation given, give patient instructions): Coronavirus Disease 2019 (COVID-19) Additional Instructions: You can take vitamin C, vitamin D and zinc to improve immune health. Return to the emergency room with any new or worsening symptoms. Self quarantine for 10 days from symptom onset. If your symptoms have resolved after 5 days you can go into the public with a mask. Increase your fluid intake to prevent dehydration. Is patient prescribed a controlled substance at d/c from ED?: No Referrals: Antonio Lim DO [Primary Care Provider] - 1-2 days Time of Disposition: 16:58
[2021-11-11 16:19] LABS: Appearance,Urine Clear (Clear); Bilirubin,Urine Negative (Negative); Blood,Urine Negative (Negative); Color,Urine Yellow; Glucose,Urine (UA) Negative (Negative); Hyaline Casts,Urine 1 /lpf (0-2); Ketones,Urine Negative (Negative); Leukocyte Esterase,Urine Small (Negative); Mucus,Urine Rare /hpf; Nitrite,Urine Negative (Negative); PH, Urine 5.5 (5.0-8.0); Protein,Urine Trace (Negative); RBC,Urine <1 /hpf (0-5); Specific Gravity,Urine 1.031 (1.001-1.035); Squamous Epithelial Cell,Urine 3 /hpf (0-4); Urobilinogen,Urine <2.0 mg/dL (<2.0); WBC,Urine 2 /hpf (0-5)
[2021-11-11 17:38] VITALS: BP 116/77; PULSE 72; RESP 18; TEMP 98.5
== END 2021-11-11 17:56 | disposition home or self-care (01) ==
LOC: EC 13:44
DX: U07.1 COVID-19 (principal); J45.909 Unspecified asthma, uncomplicated; F12.90 Cannabis use, unspecified, uncomplicated; Z20.822 Contact with and (suspected) exposure to COVID-19; Z87.891 Personal history of nicotine dependence; Z88.0 Allergy status to penicillin; Z88.1 Allergy status to other antibiotic agents; Z88.2 Allergy status to sulfonamides
CPT/HCPCS: 81001; 81025; 87636; 99284

== ENCOUNTER 2023-05-31 10:57 | Emergency (ER) | payer OTHER ==
[2023-05-31] MEDS ORDERED: ONDANSETRON 4 MG/2 ML VIAL IVP STA (11:42)
[2023-05-31] MEDS ORDERED: KETOROLAC 15 MG/ML 1 ML VIAL IVP STA (11:42)
[2023-05-31] MEDS ORDERED: SODIUM CHLORIDE 0.9% 1,000 ML IV STA (11:42)
[2023-05-31 12:46] LABS: ALT 23 U/L (4-34); AST 39 U/L (14-36); African American GFR (CKD) >90 (>60 ml/min/1.73 sqM); Alkaline Phosphatase 96 U/L (38-126); Amylase 45 U/L (30-110); Anion Gap 7 mmol/L; Blood Urea Nitrogen 21 mg/dL (7-17); Calcium 8.8 mg/dL (8.4-10.2); Carbon Dioxide 19 mmol/L (22-30); Chloride 109 mmol/L (98-107); Glucose 91 mg/dL (74-99); Lipase 60 U/L (23-300); Non-African American GFR(CKD) >90 (>60 ml/min/1.73 sqM); Sodium 135 mmol/L (137-145); Total Bilirubin 0.8 mg/dL (0.2-1.3); Total Protein 7.2 g/dL (6.3-8.2)
[2023-05-31 12:51] LABS: Potassium 5.1 mmol/L (3.5-5.1)
[2023-05-31 13:03] LABS: RBC,Urine 1 /hpf (0-5); Squamous Epithelial Cell,Urine 13 /hpf (0-4); WBC,Urine 11 /hpf (0-5)
[2023-05-31 13:07] LABS: Appearance,Urine Slightly Cloudy (Clear); Bilirubin,Urine Negative (Negative); Blood,Urine Negative (Negative); Color,Urine Light Yellow; Glucose,Urine (UA) Negative (Negative); Ketones,Urine Negative (Negative); PH, Urine 6.5 (5.0-8.0); Protein,Urine Negative (Negative)
[2023-05-31 13:08] LABS: Leukocyte Esterase,Urine Moderate (Negative); Nitrite,Urine Negative (Negative); Urobilinogen,Urine <2.0 mg/dL (<2.0)
[2023-05-31 13:09] VITALS: RESP 16
[2023-05-31 13:12] LABS: Basophils % (A) 1 %; Eosinophils # (A) 0.3 k/uL (0-0.7); Eosinophils % (A) 4 %; HGB 13.6 gm/dL (11.4-16.0); Lymphocytes # (A) 2.2 k/uL (1.0-4.8); Lymphocytes % (A) 27 %; MCH 28.9 pg (25.0-35.0); MCV 84.8 fL (80.0-100.0); Mean Platelet Volume 8.6; Monocytes # (A) 0.4 k/uL (0-1.0); Monocytes % (A) 5 %; Neutrophils # (A) 5.2 k/uL (1.3-7.7); Neutrophils % (A) 63 %; Platelet Count 344 k/uL (150-450); RBC 4.72 m/uL (3.80-5.40); RDW 13.8 % (11.5-15.5); WBC 8.3 k/uL (3.8-10.6)
--- NOTE | 2023-05-31 13:18 | US ---
EXAMINATION TYPE: US renals and bladder DATE OF EXAM: 05/31/2023 COMPARISON: NONE CLINICAL INDICATION: Female, 27 years old with history of eval for right hydronephrosis; Right pelvic pain EXAM MEASUREMENTS: Right Kidney: 10.4 x 4.6 x 5.0 cm Left Kidney: 11.4 x 4.8 x 4.3 cm Right Kidney: No hydronephrosis or masses seen Left Kidney: No hydronephrosis or masses seen Bladder: Nondistention limits the evaluation. IMPRESSION: No hydronephrosis.
--- NOTE | 2023-05-31 13:22 | US ---
EXAMINATION TYPE: US transvaginal DATE OF EXAM: 05/31/2023 COMPARISON: NONE CLINICAL INDICATION: Female, 27 years old with history of eval for ovarian torsion; Right pelvic pain TECHNIQUE: Transvaginal ER exam Date of LMP: 8 weeks ago EXAM MEASUREMENTS: Uterus: 7.2 x 3.8 x 4.2 cm Endometrial Stripe: 0.6 cm Right Ovary: 2.9 x 2.3 x 2.1 cm Left Ovary: 3.8 x 2.8 x 3.3 cm 1. Uterus: anteverted 2. Endometrium: appears wnl 3. Right Ovary: 2.3 x 1.6 x 1.7cm complex area, possible hemorrhagic cyst. Follow-up recommended to assess for involution. 4. Left Ovary: 3.7 x 2.3 x 2.7cm cyst Spectral, color and waveform doppler imaging shows good arterial and venous flow within the ovaries ; there is no evidence for ovarian torsion. 5. Bilateral Adnexa: right adnexa - small amount of free fluid 6. Posterior cul-de-sac: Mild free fluid. IMPRESSION: 1. No sonographic evidence for ovarian torsion. 2. There is a complex lesion of the right ovary measuring 2.3 cm, possible hemorrhagic cyst. Recommen d follow-up ultrasound in 6-8 weeks to assess for involution. 3. Dominant follicle/functional cyst of the left ovary measuring 3.7 cm. 4. Mild cul-de-sac and bilateral adnexal free fluid.
--- NOTE | 2023-05-31 13:34 | ED ---
General Adult HPI - General Chief complaint: Abdominal Pain Stated complaint: R Side Abd pain, Week late for period Time Seen by Provider: 05/31/23 11:11 Source: patient, RN notes reviewed Mode of arrival: ambulatory - History of Present Illness Initial comments: Patient is a 27-year-old female with past medical history that is unremarkable presents emergency Department complaining of right lower quadrant abdominal pain. Has been ongoing for multiple days. Worse with certain movements. Endorses episode of nausea with some nonbilious emesis this morning and she believes he may have been streaked with blood. No further episodes. Denies any diarrhea or constipation. Still passing flatus. Denies any urinary complaints. Has no other acute complaints at this time. Presents for further evaluation at this time. Denies any vaginal discharge or bleeding. Does not believe she is . She is one week late for her period. - Related Data Home Medications Medication Instructions Recorded Confirmed Acetaminophen Tab [Tylenol Tab] 1,000 mg PO Q6HR PRN 11/11/21 11/11/21 Allergies Allergy/AdvReac Type Severity Reaction Status Date / Time Milk Containing Products Allergy Anaphylaxis Verified 05/31/23 11:07 Penicillins Allergy Rash/Hives Verified 05/31/23 11:07 sulfamethoxazole AdvReac Vomiting Verified 05/31/23 11:07 [From Bactrim] trimethoprim [From Bactrim] AdvReac Vomiting Verified 05/31/23 11:07 Review of Systems ROS Statement: Those systems with pertinent positive or pertinent negative responses have been documented in the HPI. Review of Systems: CONST: Denies fever EYES: Denies blurry vision ENT: Denies nasal congestion C/V: Denies Chest pain RESP: Denies shortness of breath GI: Endorses abdominal pain : Denies dysuria SKIN: Denies rash. MSK: Denies joint pain. NEURO: Denies headache ROS Other: All systems not noted in ROS Statement are negative. 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 pt denies seizures, states she "passed out" once at age 18 History of Any Multi-Drug Resistant Organisms: None Reported Past Surgical History: Tonsillectomy Additional Past Surgical History / Comment(s): tonsillectomy 2010 Past Anesthesia/Blood Transfusion Reactions: No Reported Reaction Past Psychological History: No Psychological Hx Reported Smoking Status: Current every day smoker Past Alcohol Use History: Rare Past Drug Use History: Marijuana - Past Family History Mother Family Medical History: No Reported History General Exam - General Exam Comments Initial Comments: General: Appears in no acute distress. HEAD: Normal with no signs of head trauma. EYES: PERRLA, EOMI, conjunctiva normal, no discharge. ENT: Hearing grossly intact, normal oropharynx. RESPIRATORY: Clear breath sounds bilaterally. No wheezes, rales, or rhonchi. C/V: Regular rate and rhythm. S1 and S2 auscultated, no edema, peripheral pulses 2+ and intact throughout ABD: Abdomen is soft, nondistended. Tender to palpation in the right lower quadrant. No guarding. No rebound tenderness. No peritoneal signs. No flank tenderness. No CVA tenderness to percussion. EXT: Normal range of motion, no obvious deformity SKIN: No rashes or lesions observed on exposed skin. NEURO: Alert and oriented 4. Course Vital Signs 05/31/23 05/31/23 05/31/23 11:02 13:07 13:43 Temperature 98.1 F 97.7 F 97.8 F Pulse Rate 85 79 77 Respiratory 18 16 16 Rate Blood Pressure 132/94 123/69 120/81 O2 Sat by Pulse 98 100 100 Oximetry Medical Decision Making - Medical Decision Making Was pt. sent in by a medical professional or institution (TRISTEN Carrasco, SCHOOL PSYCHOLOGIST ASSISTANT, urgent care, hospital, or long term...) When possible be specific @ -No Did you speak to anyone other than the patient for history (EMS, parent, family, police, friend...)? What history was obtained from this source @ -No Did you review nursing and triage notes (agree or disagree)? Why? @ -I reviewed and agree with nursing and triage notes Were old charts reviewed (outside hosp., previous admission, EMS record, old EKG, old radiological studies, urgent care reports/EKG's, long term records)? Report findings @ -No old charts were reviewed Differential Diagnosis (chest pain, altered mental status, abdominal pain women, abdominal pain men, vaginal bleeding, weakness, fever, dyspnea, syncope, headache, dizziness, GI bleed, back pain, seizure, CVA, palpatations, mental health, musculoskeletal)? @ -Differential Abdominal Pain Women: Appendicitis, Cholecystitis, diverticulosis, ischemic bowel, pancreatitis, hepatitis, UTI, gastroenteritis, AAA, incarcerated hernia, bowel obstruction, constipation, inflammatory bowel, hepatitis, peptic ulcer disease, splenic infarction, perforated viscus, vulvitis, ovarian torsion, PID, kidney stone, placenta abruption, this is not meant to be an all-inclusive list EKG interpreted by me (3pts min.). @ -As above X-rays interpreted by me (1pt min.). @ -None done CT interpreted by me (1pt min.). @ -None done U/S interpreted by me (1pt. min.). @ -Ultrasound is interpreted by radiology reveals no evidence of hydronephrosis or kidney stones. Patient does have a complex right ovarian cyst, likely hemorrhagic cyst. Recommend follow-up ultrasound. What testing was considered but not performed or refused? (CT, X-rays, U/S, labs)? Why? @ -None What meds were considered but not given or refused? Why? @ -None Did you discuss the management of the patient with other professionals (professionals i.e. , PA, SCHOOL PSYCHOLOGIST ASSISTANT, lab, RT, psych nurse, social science manager, yard attendant, teacher, staff nuclear weapons officer, case planner)? Give summary @ -No Was smoking cessation discussed for >3mins.? @ -No Was critical care preformed (if so, how long)? @ -No Were there social determinants of health that impacted care today? How? (Homelessness, low income, unemployed, alcoholism, drug addiction, transportation, low edu. Level, literacy, decrease access to med. care, prison, rehab)? @ -No Was there de-escalation of care discussed even if they declined (Discuss DNR or withdrawal of care, Hospice)? DNR status @ -No What co-morbidities impacted this encounter? (DM, HTN, Smoking, COPD, CAD, Cancer, CVA, ARF, Chemo, Hep., AIDS, mental health diagnosis, sleep apnea, morbid obesity)? @ -None Was patient admitted / discharged? Hospital course, mention meds given and route, prescriptions, significant lab abnormalities, going to OR and other pertinent info. @ -Based on the patient's presentation and physical exam, I am concerned for acute intra-abdominal process for current symptoms. We will start with ultrasounds to evaluate for ovarian torsion or cyst as well as for kidney stone. Abdominal laboratory studies will be obtained. Patient was in agreement this plan. She'll be symptomatically treated with IV fluids, Toradol, Zofran. Vital signs are within acceptable limits. Patient's laboratory studies are within acceptable limits. Ultrasounds revealed a ovarian cysts on the right. This is likely the source of her pain. I discussed results with the patient. She exposed understanding. She'll follow up with her ONLINE MARKETING SPECIALIST for further ultrasound to assess for resolution of the cyst. Patient was in agreement this plan. Strict return precautions discussed. Can use [id number] analgesia medications at home for pain control. I instructed the patient to follow up with their PCP in the next 1-3 days. I explained that the patient should return to the emergency department if they experience any worsening symptoms. Strict return precautions were discussed with the patient. The patient expressed understanding of these instructions. I answered all questions that the patient had. The patient was discharged home in good condition with their prescriptions and follow up information. Undiagnosed new problem with uncertain prognosis? @ -No Drug Therapy requiring intensive monitoring for toxicity (Heparin, Nitro, Insulin, Cardizem)? @ -No Were any procedures done? @ -No Diagnosis/symptom? @ -Right-sided ovarian cyst, abdominal pain Acute, or Chronic, or Acute on Chronic? @ -Acute Uncomplicated (without systemic symptoms) or Complicated (systemic symptoms)? @ -Complicated Side effects of treatment? @ -No Exacerbation, Progression, or Severe Exacerbation? @ -No Poses a threat to life or bodily function? How? (Chest pain, [place], ND, pneumonia, PE, COPD, DKA, ARF, appy, cholecystitis, CVA, Diverticulitis, Homicidal, Suicidal, threat to staff... and all critical care pts) @ -No - Lab Data Result diagrams: 05/31/23 11:48 05/31/23 11:48 Lab Results 05/31/23 05/31/23 05/31/23 Range/Units 11:48 11:48 11:48 WBC 8.3 (3.8-10.6) k/uL RBC 4.72 (3.80-5.40) m/uL Hgb 13.6 (11.4-16.0) gm/dL Hct 40.0 (34.0-46.0) % MCV 84.8 (80.0-100.0) fL MCH 28.9 (25.0-35.0) pg MCHC 34.0 (31.0-37.0) g/dL RDW 13.8 (11.5-15.5) % Plt Count 344 (150-450) k/uL MPV 8.6 Neutrophils % 63 % Lymphocytes % 27 % Monocytes % 5 % Eosinophils % 4 % Basophils % 1 % Neutrophils # 5.2 (1.3-7.7) k/uL Lymphocytes # 2.2 (1.0-4.8) k/uL Monocytes # 0.4 (0-1.0) k/uL Eosinophils # 0.3 (0-0.7) k/uL Basophils # 0.0 (0-0.2) k/uL Sodium 135 L (137-145) mmol/L Potassium 5.1 (3.5-5.1) mmol/L Chloride 109 H (98-107) mmol/L Carbon Dioxide 19 L (22-30) mmol/L Anion Gap 7 mmol/L BUN 21 H (7-17) mg/dL Creatinine 0.63 (0.52-1.04) mg/dL Est GFR (CKD-EPI)AfAm >90 (>60 ml/min/1.73 sqM) Est GFR (CKD-EPI)NonAf >90 (>60 ml/min/1.73 sqM) Glucose 91 (74-99) mg/dL Plasma Lactic Acid [place] (0.7-2.0) mmol/L Calcium 8.8 (8.4-10.2) mg/dL Total Bilirubin 0.8 (0.2-1.3) mg/dL AST 39 H (14-36) U/L ALT 23 (4-34) U/L Alkaline Phosphatase 96 (38-126) U/L Total Protein 7.2 (6.3-8.2) g/dL Albumin 4.0 (3.5-5.0) g/dL Amylase 45 (30-110) U/L Lipase 60 (23-300) U/L Urine Color Light Yellow Urine Appearance Slightly Cloudy H (Clear) Urine pH 6.5 (5.0-8.0) Ur Specific [place] 1.020 (1.001-1.035) Urine Protein Negative (Negative) Urine Glucose (UA) Negative (Negative) Urine Ketones Negative (Negative) Urine Blood Negative (Negative) Urine Nitrite Negative (Negative) Urine Bilirubin Negative (Negative) Urine Urobilinogen <2.0 (<2.0) mg/dL Ur Leukocyte Esterase Moderate (Negative) Urine RBC 1 (0-5) /hpf Urine WBC 11 H (0-5) /hpf Ur Squamous Epith Cells 13 H (0-4) /hpf Urine HCG, Qual (Not Detectd) 05/31/23 05/31/23 Range/Units 11:48 11:48 WBC (3.8-10.6) k/uL RBC (3.80-5.40) m/uL Hgb (11.4-16.0) gm/dL Hct (34.0-46.0) % MCV (80.0-100.0) fL MCH (25.0-35.0) pg MCHC (31.0-37.0) g/dL RDW (11.5-15.5) % Plt Count (150-450) k/uL MPV Neutrophils % % Lymphocytes % % Monocytes % % Eosinophils % % Basophils % % Neutrophils # (1.3-7.7) k/uL Lymphocytes # (1.0-4.8) k/uL Monocytes # (0-1.0) k/uL Eosinophils # (0-0.7) k/uL Basophils # (0-0.2) k/uL Sodium (137-145) mmol/L Potassium (3.5-5.1) mmol/L Chloride (98-107) mmol/L Carbon Dioxide (22-30) mmol/L Anion Gap mmol/L BUN (7-17) mg/dL Creatinine (0.52-1.04) mg/dL Est GFR (CKD-EPI)AfAm (>60 ml/min/1.73 sqM) Est GFR (CKD-EPI)NonAf (>60 ml/min/1.73 sqM) Glucose (74-99) mg/dL Plasma Lactic Acid [place] 0.9 (0.7-2.0) mmol/L Calcium (8.4-10.2) mg/dL Total Bilirubin (0.2-1.3) mg/dL AST (14-36) U/L ALT (4-34) U/L Alkaline Phosphatase (38-126) U/L Total Protein (6.3-8.2) g/dL Albumin (3.5-5.0) g/dL Amylase (30-110) U/L Lipase (23-300) U/L Urine Color Urine Appearance (Clear) Urine pH (5.0-8.0) Ur Specific [place] (1.001-1.035) Urine Protein (Negative) Urine Glucose (UA) (Negative) Urine Ketones (Negative) Urine Blood (Negative) Urine Nitrite (Negative) Urine Bilirubin (Negative) Urine Urobilinogen (<2.0) mg/dL Ur Leukocyte Esterase (Negative) Urine RBC (0-5) /hpf Urine WBC (0-5) /hpf Ur Squamous Epith Cells (0-4) /hpf Urine HCG, Qual Not Detected (Not Detectd) Disposition Clinical Impression: Abdominal pain, Ovarian cyst Disposition: HOME SELF-CARE Condition: Good Instructions (If sedation given, give patient instructions): Ovarian Cyst (ED) Is patient prescribed a controlled substance at d/c from ED?: No Referrals: Antonio Lim DO [Primary Care Provider] - 1-2 days Time of Disposition: 13:28
[2023-05-31 13:45] VITALS: BP 120/81; PULSE 77; TEMP 97.8
== END 2023-05-31 13:45 | disposition home or self-care (01) ==
LOC: EC 10:57
DX: N83.202 Unspecified ovarian cyst, left side (principal); J45.909 Unspecified asthma, uncomplicated; F17.200 Nicotine dependence, unspecified, uncomplicated; F12.90 Cannabis use, unspecified, uncomplicated; Z91.011 Allergy to milk products; Z88.0 Allergy status to penicillin; Z88.2 Allergy status to sulfonamides; Z88.1 Allergy status to other antibiotic agents
CPT/HCPCS: 36415; 80053; 82150; 83605; 83690; 85025; 81001; 81025; 87086; 93975; 76830; 76770; 99284; 96374; 96375; 96361; J2405; J1885

== ENCOUNTER 2023-09-05 09:38 | Emergency (ER) | payer OTHER ==
--- NOTE | 2023-09-05 10:13 | ED ---
Female Urogenital HPI - General Chief complaint: Vaginal Bleeding Stated complaint: Vaginal Bleeding, 5 wks Time Seen by Provider: 09/05/23 10:03 Source: patient, RN notes reviewed Mode of arrival: ambulatory Limitations: no limitations - History of Present Illness Initial comments: This is a 27-year-old female who presents to the emergency department for vaginal bleeding in . Patient states that she's about 5 weeks and . She was at [facility] yesterday and they did an US. They measured her at 5 weeks at that time, but they were unable to see an intrauterine on ultrasound. Today she started to have some light spotting and then passed a small clot. She has minor pressure but not any pain in the pelvic region. Denies any nausea or vomiting. She is not currently established with an CURATOR OF EDUCATION. MD Complaint: vaginal bleeding - Related Data Home Medications Medication Instructions Recorded Confirmed Acetaminophen Tab [Tylenol Tab] 1,000 mg PO Q6HR PRN 11/11/21 11/11/21 Allergies Allergy/AdvReac Type Severity Reaction Status Date / Time Milk Containing Products Allergy Anaphylaxis Verified 09/05/23 09:57 (Dairy) [Milk Containing Products] Penicillins Allergy Rash/Hives Verified 09/05/23 09:57 sulfamethoxazole AdvReac Vomiting Verified 09/05/23 09:57 [From Bactrim] trimethoprim [From Bactrim] AdvReac Vomiting Verified 09/05/23 09:57 Review of Systems ROS Statement: Those systems with pertinent positive or pertinent negative responses have been documented in the HPI. ROS Other: All systems not noted in ROS Statement are negative. 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 pt denies seizures, states she "passed out" once at age 18 History of Any Multi-Drug Resistant Organisms: None Reported Past Surgical History: Tonsillectomy Additional Past Surgical History / Comment(s): tonsillectomy 2010 Past Anesthesia/Blood Transfusion Reactions: No Reported Reaction Past Psychological History: No Psychological Hx Reported Smoking Status: Current every day smoker Past Alcohol Use History: Rare Past Drug Use History: Marijuana - Past Family History Mother Family Medical History: No Reported History General Exam Limitations: no limitations General appearance: alert, in no apparent distress Head exam: Present: atraumatic, normocephalic, normal inspection Respiratory exam: Present: normal lung sounds bilaterally. Absent: respiratory distress, wheezes, rales, rhonchi, stridor Cardiovascular Exam: Present: regular rate, normal rhythm, normal heart sounds. Absent: systolic murmur, diastolic murmur, rubs, gallop, clicks Neurological exam: Present: alert, oriented X3, CN II-XII intact Psychiatric exam: Present: normal affect, normal mood Skin exam: Present: warm, dry, intact, normal color. Absent: rash Course Vital Signs 09/05/23 09/05/23 09:54 13:47 Temperature 98.7 F 98.1 F Pulse Rate 90 80 Respiratory 18 16 Rate Blood Pressure 116/69 105/72 O2 Sat by Pulse 100 97 Oximetry Medical Decision Making - Medical Decision Making This is a 27-year-old female who presents to the emergency department for vaginal bleeding in . Was pt. sent in by a medical professional or institution? @ -No Did you speak to anyone other than the patient for history? @ -No Did you review nursing and triage notes? @ -Yes, and I agree, it is accurate with regards to the patient's symptoms. Were old charts reviewed? @ -No Differential Diagnosis? @ -Differential Vaginal Bleeding: Spontaneous , threatened , molar , ectopic , incompetent cervix, placenta previa, uterine rupture, dysfunctional uterine bleeding, hemorrhage, uterine fibroids, malignancy, coagulopathy, PID, cervicitis, adenomyosis, vaginal trauma, this is not meant to be an all- inclusive list. EKG interpreted by me (3pts min.)? @ -Not obtained X-rays interpreted by me (1pt min.)? @ -Not obtained CT interpreted by me (1pt min.)? @ -Not obtained U/S interpreted by me (1pt. min.)? @ -Not interpreted by me What testing was considered but not performed? (CT, X-rays, U/S, labs)? Why? @ -None What meds were considered but not given? Why? @ -None Did you discuss the management of the patient with other professionals? @ -No Did you reconcile home meds? @ -No Was smoking cessation discussed for >3mins.? @ -No Was critical care preformed (if so, how long)? @ -No Were there social determinants of health that impacted care today? How? (Homelessness, low income, unemployed, alcoholism, drug addiction, transportation, low edu. Level, literacy, decrease access to med. care, prison, rehab)? @ -No Was there de-escalation of care discussed even if they declined? (Discuss DNR or withdrawal of care, Hospice)? @ -No What co-morbidities impacted this encounter? (DM, HTN, Smoking, COPD, CAD, Cancer, CVA, Hep., AIDS, mental health diagnosis, sleep apnea, morbid obesity)? @ - Was patient admitted / discharged? @ -Discharged. Lab work obtained and found to be nonactionable. Beta HCG is 3802. Based on this value, obstetrics ultrasound was obtained. Urinalysis negative for signs of infection. Patient is Rh+ and no RhoGAM is indicated. Pelvic US reveals an intrauterine gestational sac corresponding to 5 weeks and 1 day. No tones or pole were identified, likely due to the gestational age. Findings reviewed with the patient. She was given a lab order to have her beta hCG repeated in 48 hours. She is also advised to have pelvic rest and she was given information for follow-up with local OB/GYNs to become established for ongoing obstetrics care. Undiagnosed new problem with uncertain prognosis? @ -None Drug Therapy requiring intensive monitoring for toxicity (Heparin, Nitro, Insulin, Cardizem)? @ -None Were any procedures done? @ -None Diagnosis/symptom? @ -Threatened miscarriage Acute, or Chronic, or Acute on Chronic? @ -Acute Uncomplicated (without systemic symptoms) or Complicated (systemic symptoms)? @ -Uncomplicated Side effects of treatment? @ -None Exacerbation, Progression, or Severe Exacerbation] @ -Not applicable Poses a threat to life or bodily function? @ -Unlikely Return precautions reviewed in depth, the patient is instructed to return to the emergency department with any new, worsening, or concerning symptoms. Patient verbalized understanding. This case was discussed in detail with the attending ED physician, Dr. Mccurdy. Presentation, findings, and treatment plan discussed in detail as well. - Lab Data Result diagrams: 09/05/23 10:45 09/05/23 10:45 Lab Results 09/05/23 09/05/23 09/05/23 Range/Units 10:45 10:45 10:45 WBC 8.0 (3.8-10.6) k/uL RBC 4.67 (3.80-5.40) m/uL Hgb 13.7 (11.4-16.0) gm/dL Hct 40.0 (34.0-46.0) % MCV 85.6 (80.0-100.0) fL MCH 29.2 (25.0-35.0) pg MCHC 34.2 (31.0-37.0) g/dL RDW 13.7 (11.5-15.5) % Plt Count 371 (150-450) k/uL MPV 7.6 Neutrophils % 65 % Lymphocytes % 27 % Monocytes % 2 % Eosinophils % 6 % Basophils % 1 % Neutrophils # 5.2 (1.3-7.7) k/uL Lymphocytes # 2.1 (1.0-4.8) k/uL Monocytes # 0.1 (0-1.0) k/uL Eosinophils # 0.4 (0-0.7) k/uL Basophils # 0.0 (0-0.2) k/uL Sodium 137 (137-145) mmol/L Potassium 4.4 (3.5-5.1) mmol/L Chloride 106 (98-107) mmol/L Carbon Dioxide 20 L (22-30) mmol/L Anion Gap 11 mmol/L BUN 16 (7-17) mg/dL Creatinine 0.65 (0.52-1.04) mg/dL Est GFR (CKD-EPI)AfAm >90 (>60 ml/min/1.73 sqM) Est GFR (CKD-EPI)NonAf >90 (>60 ml/min/1.73 sqM) Glucose 97 (74-99) mg/dL Calcium 9.4 (8.4-10.2) mg/dL Total Bilirubin 0.4 (0.2-1.3) mg/dL AST 27 (14-36) U/L ALT 27 (4-34) U/L Alkaline Phosphatase 86 (38-126) U/L Total Protein 7.4 (6.3-8.2) g/dL Albumin 4.4 (3.5-5.0) g/dL HCG, Quant 3802.9 mIU/mL Urine Color Yellow Urine Appearance Clear (Clear) Urine pH 6.0 (5.0-8.0) Ur Specific [place] 1.020 (1.001-1.035) Urine Protein Negative (Negative) Urine Glucose (UA) Negative (Negative) Urine Ketones Negative (Negative) Urine Blood Moderate (Negative) Urine Nitrite Negative (Negative) Urine Bilirubin Negative (Negative) Urine Urobilinogen <2.0 (<2.0) mg/dL Ur Leukocyte Esterase Negative (Negative) Urine RBC 2 (0-5) /hpf Urine WBC <1 (0-5) /hpf Ur Squamous Epith Cells 6 H (0-4) /hpf Urine Bacteria Rare H (None) /hpf Urine Mucus Rare H (None) /hpf Blood Type Blood Type Recheck Bld Type Recheck Status 09/05/23 Range/Units 10:45 WBC (3.8-10.6) k/uL RBC (3.80-5.40) m/uL Hgb (11.4-16.0) gm/dL Hct (34.0-46.0) % MCV (80.0-100.0) fL MCH (25.0-35.0) pg MCHC (31.0-37.0) g/dL RDW (11.5-15.5) % Plt Count (150-450) k/uL MPV Neutrophils % % Lymphocytes % % Monocytes % % Eosinophils % % Basophils % % Neutrophils # (1.3-7.7) k/uL Lymphocytes # (1.0-4.8) k/uL Monocytes # (0-1.0) k/uL Eosinophils # (0-0.7) k/uL Basophils # (0-0.2) k/uL Sodium (137-145) mmol/L Potassium (3.5-5.1) mmol/L Chloride (98-107) mmol/L Carbon Dioxide (22-30) mmol/L Anion Gap mmol/L BUN (7-17) mg/dL Creatinine (0.52-1.04) mg/dL Est GFR (CKD-EPI)AfAm (>60 ml/min/1.73 sqM) Est GFR (CKD-EPI)NonAf (>60 ml/min/1.73 sqM) Glucose (74-99) mg/dL Calcium (8.4-10.2) mg/dL Total Bilirubin (0.2-1.3) mg/dL AST (14-36) U/L ALT (4-34) U/L Alkaline Phosphatase (38-126) U/L Total Protein (6.3-8.2) g/dL Albumin (3.5-5.0) g/dL HCG, Quant mIU/mL Urine Color Urine Appearance (Clear) Urine pH (5.0-8.0) Ur Specific [place] (1.001-1.035) Urine Protein (Negative) Urine Glucose (UA) (Negative) Urine Ketones (Negative) Urine Blood (Negative) Urine Nitrite (Negative) Urine Bilirubin (Negative) Urine Urobilinogen (<2.0) mg/dL Ur Leukocyte Esterase (Negative) Urine RBC (0-5) /hpf Urine WBC (0-5) /hpf Ur Squamous Epith Cells (0-4) /hpf Urine Bacteria (None) /hpf Urine Mucus (None) /hpf Blood Type A Positive Blood Type Recheck A Pos Bld Type Recheck Status No - Radiology Data Radiology results: report reviewed, image reviewed Disposition Clinical Impression: Threatened miscarriage Disposition: HOME SELF-CARE Instructions (If sedation given, give patient instructions): Threatened Miscarriage (ED) Additional Instructions: Return to the emergency department with any new, worsening, or concerning symptoms. Take the lab order to have your beta hCG count repeated in 48 hours. Make sure that you get plenty of rest. You can take Tylenol as needed for pain relief. Try contacting the CURATOR OF EDUCATION offices as listed below to become established for ongoing obstetrics care. Is patient prescribed a controlled substance at d/c from ED?: No Referrals: Antonio Lim DO [Primary Care Provider] - 1-2 days Flavia Hawkins DO [Doctor of Osteopathic Medicine] - 1-2 days Lashawn Bishop DO [Doctor of Osteopathic Medicine] - 1-2 days
[2023-09-05 11:05] LABS: Basophils % (A) 1 %; Eosinophils # (A) 0.4 k/uL (0-0.7); Eosinophils % (A) 6 %; HGB 13.7 gm/dL (11.4-16.0); Lymphocytes # (A) 2.1 k/uL (1.0-4.8); Lymphocytes % (A) 27 %; MCH 29.2 pg (25.0-35.0); MCHC 34.2 g/dL (31.0-37.0); MCV 85.6 fL (80.0-100.0); Mean Platelet Volume 7.6; Monocytes # (A) 0.1 k/uL (0-1.0); Monocytes % (A) 2 %; Neutrophils # (A) 5.2 k/uL (1.3-7.7); Neutrophils % (A) 65 %; Platelet Count 371 k/uL (150-450); RBC 4.67 m/uL (3.80-5.40); RDW 13.7 % (11.5-15.5)
[2023-09-05 11:24] LABS: ALT 27 U/L (4-34); AST 27 U/L (14-36); African American GFR (CKD) >90 (>60 ml/min/1.73 sqM); Albumin 4.4 g/dL (3.5-5.0); Alkaline Phosphatase 86 U/L (38-126); Anion Gap 11 mmol/L; Blood Urea Nitrogen 16 mg/dL (7-17); Calcium 9.4 mg/dL (8.4-10.2); Carbon Dioxide 20 mmol/L (22-30); Chloride 106 mmol/L (98-107); Glucose 97 mg/dL (74-99); Non-African American GFR(CKD) >90 (>60 ml/min/1.73 sqM); Potassium 4.4 mmol/L (3.5-5.1); Sodium 137 mmol/L (137-145); Total Bilirubin 0.4 mg/dL (0.2-1.3); Total Protein 7.4 g/dL (6.3-8.2)
[2023-09-05 11:33] LABS: Bacteria,Urine Rare /hpf; Mucus,Urine Rare /hpf; RBC,Urine 2 /hpf (0-5); Squamous Epithelial Cell,Urine 6 /hpf (0-4); WBC,Urine <1 /hpf (0-5)
[2023-09-05 11:39] LABS: Appearance,Urine Clear (Clear); Color,Urine Yellow
[2023-09-05 11:40] LABS: Bilirubin,Urine Negative (Negative); Blood,Urine Moderate (Negative); Glucose,Urine (UA) Negative (Negative); Ketones,Urine Negative (Negative); Leukocyte Esterase,Urine Negative (Negative); Nitrite,Urine Negative (Negative); Protein,Urine Negative (Negative); Urobilinogen,Urine <2.0 mg/dL (<2.0)
--- NOTE | 2023-09-05 13:12 | US ---
EXAMINATION TYPE: Transabdominal DATE OF EXAM: 09/05/2023 12:47 PM COMPARISON: NONE CLINICAL INDICATION: Female, 27 years old with history of Vaginal bleeding in ; patient scan curt yesterday, measured at 5 weeks rather than 7, pt. is now spotting EXAM PERFORMED: Transvaginal (TV) and Transabdominal (TA) EXAM MEASUREMENTS: GESTATIONAL AGE / DATING Physician Established: Not yet established Dates by LMP: (7 weeks/0 days) EDC: 04/23/24 Dates by First Scan: First scan at [facility] MATERNAL ANATOMY Uterus: 7.5x4.0x5.2cm Right Ovary: 2.7x2.7x2.9cm Left Ovary: not visualized , obscured by bowel Post CDS / Adnexa: wnl Presence of free fluid: n/a Presence of corpus luteal cyst: n/a Presence of subchorionic bleed: n/a GESTATION / SURVEY CRL: not visualized MSD: (5 weeks/1 days) Yolk Sac (normal less than 6mm): 1.5mm Heart Rate: not visualized Rhythm: not visualized IUP: only Gestational sac and Yolk sac seen at this time Date of LMP: 07/18/23 Beta HcG (if available): Not available at this time exam limited by bowel and body habitus IMPRESSION: Intrauterine gestational sac with yolk sac identified corresponding to ultrasound age of 5 weeks 1 da y. No pole or heart tones are identified at this time likely due to early gestational age . Recommend follow-up with pelvic ultrasound and serial beta hCG to ensure further development of the fetus.
[2023-09-05 13:55] VITALS: BP 105/72; PULSE 80; RESP 16; TEMP 98.1
== END 2023-09-05 13:48 | disposition home or self-care (01) ==
LOC: EC 09:38
DX: O20.0 Threatened abortion (principal); O99.511 Diseases of the respiratory system complicating pregnancy, first trimester; J45.909 Unspecified asthma, uncomplicated; O99.331 Smoking (tobacco) complicating pregnancy, first trimester; F17.200 Nicotine dependence, unspecified, uncomplicated; O99.321 Drug use complicating pregnancy, first trimester; F12.90 Cannabis use, unspecified, uncomplicated; Z3A.01 Less than 8 weeks gestation of pregnancy
CPT/HCPCS: 36415; 76801; 76817; 80053; 81001; 84702; 85025; 86900; 86901; 99284

== ENCOUNTER → 2023-09-11 | Outpatient (CLI) | payer OTHER | END | disposition home or self-care (01) | LOC: LABWHC1 09:43 | PROVIDERS: ATTEND Physician Assistant | DX: O20.0 Threatened abortion (principal); Z3A.00 Weeks of gestation of pregnancy not specified | CPT/HCPCS: 36415; 84702 ==

== ENCOUNTER 2023-10-12 19:29 | Emergency (ER) | payer OTHER ==
[2023-10-12 20:02] VITALS: RESP 18; TEMP 97.9
[2023-10-12] MEDS ORDERED: METOCLOPRAMIDE 5 MG/ML 2 ML VIAL IVP STA (20:31)
[2023-10-12] MEDS ORDERED: SODIUM CHLORIDE 0.9% 2,000 ML IV ONE (20:31)
[2023-10-12] MEDS ORDERED: PYRIDOXINE 100 MG/ML 1 ML VIAL IVP STA (20:31)
[2023-10-12] MEDS ORDERED: diphenhydrAMINE 50 MG/ML 1 ML VIAL IVP STA (20:32)
--- NOTE | 2023-10-12 20:49 | ED ---
General Adult HPI - General Chief complaint: Nausea/Vomiting/Diarrhea Stated complaint: 10 weeks preg/vomiting Time Seen by Provider: 10/12/23 20:02 Source: patient, RN notes reviewed Mode of arrival: ambulatory Limitations: no limitations - History of Present Illness Initial comments: 28-year-old female presents to the emergency department for chief complaint of nausea and vomiting in . Patient is 10 weeks . She is scheduled for an appointment to see her [facility] on Sunday. She reports that she has been experiencing nausea and vomiting recently but over the past 2 days she states she has not been able to keep down food or fluids. She denies any abdominal pain or cramping, denies vaginal bleeding. - Related Data Home Medications Medication Instructions Recorded Confirmed Acetaminophen Tab [Tylenol Tab] 1,000 mg PO Q6HR PRN 11/11/21 11/11/21 Allergies Allergy/AdvReac Type Severity Reaction Status Date / Time Milk Containing Products Allergy Anaphylaxis Verified 09/05/23 09:57 (Dairy) [Milk Containing Products] Penicillins Allergy Rash/Hives Verified 09/05/23 09:57 sulfamethoxazole AdvReac Vomiting Verified 09/05/23 09:57 [From Bactrim] trimethoprim [From Bactrim] AdvReac Vomiting Verified 09/05/23 09:57 Review of Systems ROS Statement: Those systems with pertinent positive or pertinent negative responses have been documented in the HPI. ROS Other: All systems not noted in ROS Statement are negative. 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 pt denies seizures, states she "passed out" once at age 18 History of Any Multi-Drug Resistant Organisms: None Reported Past Surgical History: Tonsillectomy Additional Past Surgical History / Comment(s): tonsillectomy 2010 Past Anesthesia/Blood Transfusion Reactions: No Reported Reaction Past Psychological History: No Psychological Hx Reported Smoking Status: Current every day smoker Past Alcohol Use History: Rare Past Drug Use History: Marijuana - Past Family History Mother Family Medical History: No Reported History General Exam Limitations: no limitations General appearance: alert, in no apparent distress Head exam: Present: atraumatic, normocephalic, normal inspection Eye exam: Present: normal appearance, PERRL, EOMI. Absent: scleral icterus, conjunctival injection, periorbital swelling ENT exam: Present: normal exam, mucous membranes moist Respiratory exam: Present: normal lung sounds bilaterally. Absent: respiratory distress, wheezes, rales, rhonchi, stridor Cardiovascular Exam: Present: regular rate, normal rhythm, normal heart sounds. Absent: systolic murmur, diastolic murmur, rubs, gallop, clicks GI/Abdominal exam: Present: soft, normal bowel sounds. Absent: distended, tenderness, guarding, rebound, rigid Extremities exam: Present: normal inspection Back exam: Present: normal inspection Neurological exam: Present: alert, oriented X3 Psychiatric exam: Present: normal affect, normal mood Skin exam: Present: warm, dry, intact, normal color. Absent: rash Course Vital Signs 10/12/23 10/12/23 19:49 22:52 Temperature 97.9 F Pulse Rate 78 79 Respiratory 18 18 Rate Blood Pressure 117/78 107/74 O2 Sat by Pulse 98 100 Oximetry Medical Decision Making - Medical Decision Making Was pt. sent in by a medical professional or institution (Dr. PA, SURGICAL TRAINING SPECIALIST, urgent care, hospital, or custodial...) When possible be specific @ -No Did you speak to anyone other than the patient for history (EMS, parent, family, police, friend...)? What history was obtained from this source @ -No Did you review nursing and triage notes (agree or disagree)? Why? @ -I reviewed and agree with nursing and triage notes Were old charts reviewed (outside hosp., previous admission, EMS record, old EKG, old radiological studies, urgent care reports/EKG's, custodial records)? Report findings @ -No old charts were reviewed Differential Diagnosis (chest pain, altered mental status, abdominal pain women, abdominal pain men, vaginal bleeding, weakness, fever, dyspnea, syncope, headache, dizziness, GI bleed, back pain, seizure, CVA, palpatations, mental health, musculoskeletal)? @ -Nausea and vomiting in , hyperemesis gravidarum, this list is not all-inclusive EKG interpreted by me (3pts min.). @ -none X-rays interpreted by me (1pt min.). @ -None done CT interpreted by me (1pt min.). @ -None done U/S interpreted by me (1pt. min.). @ -None done What testing was considered but not performed or refused? (CT, X-rays, U/S, labs)? Why? @ -ultrasound considered patient is not having any abdominal symptoms at this time, and no vaginal bleeding What meds were considered but not given or refused? Why? @ -None Did you discuss the management of the patient with other professionals (professionals i.e. Dr., PA, SURGICAL TRAINING SPECIALIST, lab, RT, psych nurse, case management social worker, flight surveyor, teacher, child support case officer, caseworker intake)? Give summary @ -No Was smoking cessation discussed for >3mins.? @ -No Was critical care preformed (if so, how long)? @ -No Were there social determinants of health that impacted care today? How? (Homelessness, low income, unemployed, alcoholism, drug addiction, transportation, low edu. Level, literacy, decrease access to med. care, assisted, rehab)? @ -No Was there de-escalation of care discussed even if they declined (Discuss DNR or withdrawal of care, Hospice)? DNR status @ -No What co-morbidities impacted this encounter? (DM, HTN, Smoking, COPD, CAD, Cancer, CVA, ARF, Chemo, Hep., AIDS, mental health diagnosis, sleep apnea, morbid obesity)? @ -None Was patient admitted / discharged? Hospital course, mention meds given and route, prescriptions, significant lab abnormalities, going to OR and other pertinent info. @ -Discharged. Patient presented to the emergency department chief complaint of nausea and vomiting. Patient is 10 weeks . Laboratory studies obtained which showed WBC 13.6 likely reactive to and vomiting, hemoglobin 13.7; CMP shows sodium 136, potassium 3.9, chloride 102; UA shows t race protein, 2+ ketones. Vital signs stable. Patient provided 2 L normal saline in the emergency department, Reglan, B6, Benadryl. Patient resting when rechecked. She is tolerating oral intake and would like to be discharged home. Patient understands and agreeable with discharge plan. Patient stable at discharge. Case discussed with Dr. Jacobson Undiagnosed new problem with uncertain prognosis? @ -No Drug Therapy requiring intensive monitoring for toxicity (Heparin, Nitro, Insulin, Cardizem)? @ -No Were any procedures done? @ -No Diagnosis/symptom? @ -nausea and vomiting in Acute, or Chronic, or Acute on Chronic? @ -acute Uncomplicated (without systemic symptoms) or Complicated (systemic symptoms)? @ -uncomplicated Side effects of treatment? @ -No Exacerbation, Progression, or Severe Exacerbation? @ -No Poses a threat to life or bodily function? How? (Chest pain, [place], [place], pneumonia, PE, COPD, DKA, ARF, appy, cholecystitis, CVA, Diverticulitis, Homicidal, Suicidal, threat to staff... and all critical care pts) @ -No - Lab Data Result diagrams: 10/12/23 20:44 10/12/23 20:44 Lab Results 10/12/23 10/12/23 10/12/23 Range/Units 20:44 20:44 22:32 WBC 13.6 H (3.8-10.6) k/uL RBC 4.73 (3.80-5.40) m/uL Hgb 13.7 (11.4-16.0) gm/dL Hct 39.8 (34.0-46.0) % MCV 84.2 (80.0-100.0) fL MCH 28.9 (25.0-35.0) pg MCHC 34.4 (31.0-37.0) g/dL RDW 13.3 (11.5-15.5) % Plt Count 401 (150-450) k/uL MPV 7.7 Neutrophils % 71 % Lymphocytes % 23 % Monocytes % 2 % Eosinophils % 3 % Basophils % 1 % Neutrophils # 9.7 H (1.3-7.7) k/uL Lymphocytes # 3.1 (1.0-4.8) k/uL Monocytes # 0.3 (0-1.0) k/uL Eosinophils # 0.3 (0-0.7) k/uL Basophils # 0.1 (0-0.2) k/uL Sodium 136 L (137-145) mmol/L Potassium 3.9 (3.5-5.1) mmol/L Chloride 102 (98-107) mmol/L Carbon Dioxide 24 (22-30) mmol/L Anion Gap 10 mmol/L BUN 14 (7-17) mg/dL Creatinine 0.60 (0.52-1.04) mg/dL Est GFR (CKD-EPI)AfAm >90 (>60 ml/min/1.73 sqM) Est GFR (CKD-EPI)NonAf >90 (>60 ml/min/1.73 sqM) Glucose 87 (74-99) mg/dL Calcium 9.5 (8.4-10.2) mg/dL Total Bilirubin 0.4 (0.2-1.3) mg/dL AST 20 (14-36) U/L ALT 16 (4-34) U/L Alkaline Phosphatase 88 (38-126) U/L Total Protein 7.2 (6.3-8.2) g/dL Albumin 4.3 (3.5-5.0) g/dL Urine Color [place] Urine Appearance Slightly Cloudy H (Clear) Urine pH 6.0 (5.0-8.0) Ur Specific [place] 1.030 (1.001-1.035) Urine Protein Trace H (Negative) Urine Glucose (UA) Negative (Negative) Urine Ketones 3+ (Negative) Urine Blood Negative (Negative) Urine Nitrite Negative (Negative) Urine Bilirubin Negative (Negative) Urine Urobilinogen 0.2 (<2.0) mg/dL Ur Leukocyte Esterase Negative (Negative) Urine RBC <1 (0-5) /hpf Urine WBC 1 (0-5) /hpf Ur Squamous Epith Cells 7 H (0-4) /hpf Urine Mucus Many H (None) /hpf Disposition Clinical Impression: Nausea and vomiting during Disposition: HOME SELF-CARE Condition: Stable Instructions (If sedation given, give patient instructions): Hyperemesis Gravidarum (ED) Additional Instructions: 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 If no improvement by day 3, you may increase this to twice daily. Follow up with your [facility] as scheduled. Return to the emergency department for new or worsening symptoms. Is patient prescribed a controlled substance at d/c from ED?: No Referrals: Antonio Lim DO [Primary Care Provider] - 1-2 days
[2023-10-12 21:06] LABS: Basophils # (A) 0.1 k/uL (0-0.2); Basophils % (A) 1 %; Eosinophils # (A) 0.3 k/uL (0-0.7); Eosinophils % (A) 3 %; HCT 39.8 % (34.0-46.0); HGB 13.7 gm/dL (11.4-16.0); Lymphocytes # (A) 3.1 k/uL (1.0-4.8); Lymphocytes % (A) 23 %; MCH 28.9 pg (25.0-35.0); MCHC 34.4 g/dL (31.0-37.0); MCV 84.2 fL (80.0-100.0); Mean Platelet Volume 7.7; Monocytes # (A) 0.3 k/uL (0-1.0); Monocytes % (A) 2 %; Neutrophils # (A) 9.7 k/uL (1.3-7.7); Neutrophils % (A) 71 %; Platelet Count 401 k/uL (150-450); RBC 4.73 m/uL (3.80-5.40); RDW 13.3 % (11.5-15.5); WBC 13.6 k/uL (3.8-10.6)
[2023-10-12 21:22] LABS: ALT 16 U/L (4-34); AST 20 U/L (14-36); African American GFR (CKD) >90 (>60 ml/min/1.73 sqM); Albumin 4.3 g/dL (3.5-5.0); Alkaline Phosphatase 88 U/L (38-126); Anion Gap 10 mmol/L; Blood Urea Nitrogen 14 mg/dL (7-17); Calcium 9.5 mg/dL (8.4-10.2); Carbon Dioxide 24 mmol/L (22-30); Chloride 102 mmol/L (98-107); Glucose 87 mg/dL (74-99); Non-African American GFR(CKD) >90 (>60 ml/min/1.73 sqM); Potassium 3.9 mmol/L (3.5-5.1); Sodium 136 mmol/L (137-145); Total Bilirubin 0.4 mg/dL (0.2-1.3); Total Protein 7.2 g/dL (6.3-8.2)
[2023-10-12 22:42] LABS: Mucus,Urine Many /hpf; RBC,Urine <1 /hpf (0-5); Squamous Epithelial Cell,Urine 7 /hpf (0-4); WBC,Urine 1 /hpf (0-5)
[2023-10-12 22:43] LABS: Appearance,Urine Slightly Cloudy (Clear); Bilirubin,Urine Negative (Negative); Blood,Urine Negative (Negative); Color,Urine Orange; Glucose,Urine (UA) Negative (Negative); Ketones,Urine 3+ (Negative); Leukocyte Esterase,Urine Negative (Negative); Nitrite,Urine Negative (Negative); Protein,Urine Trace (Negative); Urobilinogen,Urine 0.2 mg/dL (<2.0)
[2023-10-12] MEDS ORDERED: ONDANSETRON 4 MG ODT STARTER PACK 2 TAB BTL PO STA (22:57)
[2023-10-12 23:14] VITALS: BP 107/74; PULSE 79
== END 2023-10-12 23:14 | disposition home or self-care (01) ==
LOC: EC 19:29
DX: O21.9 Vomiting of pregnancy, unspecified (principal); O99.511 Diseases of the respiratory system complicating pregnancy, first trimester; J45.909 Unspecified asthma, uncomplicated; O99.331 Smoking (tobacco) complicating pregnancy, first trimester; F17.200 Nicotine dependence, unspecified, uncomplicated; O99.321 Drug use complicating pregnancy, first trimester; F12.90 Cannabis use, unspecified, uncomplicated; Z3A.10 10 weeks gestation of pregnancy; Z88.2 Allergy status to sulfonamides; Z88.0 Allergy status to penicillin; Z91.011 Allergy to milk products; Z88.1 Allergy status to other antibiotic agents
CPT/HCPCS: 36415; 80053; 85025; 81001; 84702; 96374; 96375 ×2; 96361 ×2; 99284; J1200; J3415; J2765; S0119

== ENCOUNTER 2023-11-21 16:15 | Emergency (ER) | payer OTHER ==
[2023-11-21 16:32] VITALS: BP 114/66; PULSE 130; RESP 18; TEMP 99
== END 2023-11-21 17:37 | disposition left against medical advice (07) ==
LOC: EC 16:15
DX: O99.512 Diseases of the respiratory system complicating pregnancy, second trimester (principal); J06.9 Acute upper respiratory infection, unspecified; Z3A.16 16 weeks gestation of pregnancy; Z20.822 Contact with and (suspected) exposure to COVID-19; Z53.21 Procedure and treatment not carried out due to patient leaving prior to being seen by health care provider
CPT/HCPCS: 87636; 99499

== ENCOUNTER 2024-03-02 05:35 | Outpatient (CLI) | payer OTHER ==
[2024-03-02 06:21] VITALS: BP 126/64; PULSE 92; RESP 18; TEMP 97.8
--- NOTE | 2024-03-03 08:21 | P.MSEPDOC ---
Presenting Problems - Arrival Data Date of Arrival on Unit: 03/02/24 Time of Arrival on Unit: 05:34 Mode of Transport: Ambulatory - Complaint OB-Reason for Admission/Chief Complaint: Decreased Movement Medical History - Information : 3 Para: 2 Term: 2 : 0 Abortions: Spontaneous or Elective: 0 Number of Living Children: 2 - Gestational Age Gestational Age by ARTHUR (wks/days): 30 Weeks and 4 Days Review of Systems - Review of Systems Constitutional: No problems Breast: No problems ENT: No problems Cardiovascular: No problems Respiratory: No problems Gastrointestinal: No problems Genitourinary: No problems Musculoskeletal: No problems Neurological: No problems Skin: No problems Vital Signs - Temperature Temperature: 97.8 F Temperature Source: Oral - Pulse Pulse Oximetery Pulse Rate: 92 Pulse Assessment Method: Pulse Oximetry - Respirations Respiratory Rate: 18 Oxygen Delivery Method: Room Air O2 Sat by Pulse Oximetry: 97 - Blood Pressure Right Arm Sitting Blood Pressure: 126/64 Blood Pressure Mean: 84 Blood Pressure Source: Automatic Cuff Medical Screen Scoring - Uterine Contractions Resting: Soft to palpation - Assessment - Baby A Baseline FHR: 135 Heart Rate - NICHD Category: Category I (Normal) NST: Reactive Physician Notification - Physician Notified Physician Notified Date: 03/02/24 Physician Notified Time: 05:57 Physician: Flavia Hawkins New Order Received: Yes - Notification Comment Comment: Call placed to Dr Hawkins, report of patient , 30 4/7 weeks presents for decreased movement, denies bleeding or loss of fluid. Patient is noted to have a reactive strip. Orders received to discharge patient home. Maternal Triage Index - Maternal Triage Index Presenting for scheduled procedure w/no complaint: No - Stat/Priority 1 Stat Priority 1: No - Urgent/Priority 2 Urgent Priority 2: No - Prompt/Priority 3 Prompt Priority 3: Yes Criteria Met for Priority 3: Patient of Dr Edmondson, 30 4/7 weeks, pr esents with c/o decreased movement since she's been awake the last 2 hours. Patient denies bleeding or loss of fluid. +2 reflexes and no clonus noted. Disposition - Disposition OB Disposition: Discharge to home Discharge Date: 03/02/24 Discharge Time: 05:59 I agree with the RN Medical Screening Exam: Yes Case reviewed; plan agreed upon as documented in EMR&OBIX.: Yes Diagnosis: DECREASED MOVEMENTS, THIRD TRIMESTER, FETUS 1
== END 2024-03-02 05:59 ==
LOC: FBPOP 05:35
PROVIDERS: ATTEND Obstetrics & Gynecology
DX: O36.8131 Decreased fetal movements, third trimester, fetus 1 (principal); O99.333 Smoking (tobacco) complicating pregnancy, third trimester; F17.200 Nicotine dependence, unspecified, uncomplicated; Z3A.30 30 weeks gestation of pregnancy; Z91.011 Allergy to milk products; Z88.0 Allergy status to penicillin; Z88.2 Allergy status to sulfonamides; Z88.1 Allergy status to other antibiotic agents
CPT/HCPCS: 59025; G0463; 99213

== ENCOUNTER 2024-04-28 06:00 | Inpatient (IN) | payer OTHER ==
[2024-04-28] MEDS ORDERED: miSOPROStoL 200 MCG TAB PO PRN (06:33)
[2024-04-28] MEDS ORDERED: TERBUTALINE 1 MG/ML VIAL SQ PRN (06:33)
[2024-04-28] MEDS ORDERED: TRANEXAMIC 1,000 MG/100ML-NACL 1,000 MG in EMPTY BAG 1 BAG IV PRN (06:33)
[2024-04-28] MEDS ORDERED: METHYLERGONOVINE 0.2 MG/ML 1 ML AMP IM PRN (06:33)
[2024-04-28] MEDS ORDERED: CARBOPROST TROMETHAMINE 250 MCG/ML 1 ML AMP IM PRN (06:33)
[2024-04-28] MEDS ORDERED: LIDOCAINE 0.5% (PF) 5 MG/ML (50 ML SDV) SQ PRN (06:33)
[2024-04-28] MEDS ORDERED: OXYTOCIN 10 UNIT/ML 1 ML VIAL IM PRN (06:33)
[2024-04-28] MEDS ORDERED: VANCOMYCIN IV PER PHARMACY 1 EACH MISC MISCELLANE PRN (06:36)
[2024-04-28] MEDS: LACTATED RINGERS 1,000 ML IV SCH (06:58)
[2024-04-28] MEDS: OXYTOCIN 30 UNITS/500 ML NS 30 UNIT in SALINE 1 500ML.BAG IV SCH (06:58)
[2024-04-28] MEDS: VANCOMYCIN 1,750 MG in SODIUM CHLORIDE 0.9% 500 ML 500 ML IVPB SCH (07:25)
[2024-04-28 07:29] LABS: Basophils % (A) 0 %; Eosinophils # (A) 0.3 k/uL (0-0.7); Eosinophils % (A) 2 %; HCT 36.4 % (34.0-46.0); Lymphocytes # (A) 2.3 k/uL (1.0-4.8); Lymphocytes % (A) 17 %; MCV 84.8 fL (80.0-100.0); Mean Platelet Volume 8.8; Monocytes # (A) 0.4 k/uL (0-1.0); Monocytes % (A) 3 %; Neutrophils # (A) 10.9 k/uL (1.3-7.7); Neutrophils % (A) 77 %; Platelet Count 361 k/uL (150-450); Poikilocytosis Slight; RBC 4.29 m/uL (3.80-5.40); RDW 14.4 % (11.5-15.5); WBC 14.2 k/uL (3.8-10.6)
[2024-04-28 08:00] VITALS: RESP 16
[2024-04-28] MEDS ORDERED: NALBUPHINE 10 MG/ML (10 ML MDV) IV PRN (08:46)
--- NOTE | 2024-04-28 08:52 | P.HPOB ---
History of Present Illness H&P Date: 04/28/24 Chief Complaint: 38-5/7 weeks, IUGR, induction The patient is a 28-year-old 3 para 2-0-0-2 admitted at 38-5/7 weeks as established by 8-week ultrasound. She is admitted for induction of labor secondary to the diagnosis of intrauterine growth restriction. She has had reassuring twice-weekly testing over the last several weeks since the diagnosis of IUGR. Her has otherwise been uncomplicated though she is group B strep positive. On labor and delivery, all signs are reassuring with a category 1 heart rate tracing. As a result of her group B strep status, antibiotic prophylaxis has been started. Obstetrical history: 3 para 2-0-0-2 with 2 term vaginal deliveries without complications. Current statistics are listed in history of present illness. EDC of 05/07/2024 was established by a week ultrasound. Laboratory workup demonstrates a blood type of A+ with a negative antibody screen. Rubella status is immune. The remainder of the laboratory workup was within normal limits. Early Glucola and second trimester Glucola were both within normal limits. Group B strep status is positive. Gynecologic history: Unremarkable with no history of any infections to include STDs. Review of Systems Review of systems is confined to history of present illness. 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 pt denies seizures, states she "passed out" once at age 18 History of Any Multi-Drug Resistant Organisms: None Reported Past Surgical History: Tonsillectomy Additional Past Surgical History / Comment(s): tonsillectomy 2010 Past Anesthesia/Blood Transfusion Reactions: No Reported Reaction Past Psychological History: No Psychological Hx Reported Smoking Status: Current every day smoker Past Alcohol Use History: Rare Past Drug Use History: Marijuana Additional Drug Use History / Comment(s): 5-7 cigarettes a day - Past Family History Mother Family Medical History: Thyroid Disorder Medications and Allergies Home Medications Medication Instructions Recorded Confirmed Type Albuterol Nebulized [Ventolin 3 ml INHALATION Q6H 04/28/24 04/28/24 History Nebulized (Accuneb)] Vit No.179/Iron/Folic 1 each PO DAILY 04/28/24 04/28/24 History [ Tablet] Allergies Allergy/AdvReac Type Severity Reaction Status Date / Time Milk Containing Products Allergy Anaphylaxis Verified 03/02/24 05:42 (Dairy) [Milk Containing Products] Penicillins Allergy Anaphylaxis Verified 04/28/24 06:25 sulfamethoxazole AdvReac Vomiting Verified 03/02/24 05:42 [From Bactrim] trimethoprim [From Bactrim] AdvReac Vomiting Verified 03/02/24 05:42 Exam Vital Signs Temp Pulse Resp BP Pulse Ox 04/28/24 07:48 98.8 F 111 H 16 130/80 97 Intake and Output 04/27/24 04/28/24 04/28/24 22:59 06:59 14:59 Other: Weight 99.337 kg 99.337 kg In general, this is a well-developed, well-nourished white female in no acute distress. Her heart has a regular rhythm and rate without murmur. Her lungs are clear to auscultation bilaterally in all [place]. Her abdomen is gravid, nondistended, has normal active bowel sounds, soft, nontender, and without any p alpable masses aside from the uterine fundus. Her extremities are without any cyanosis, clubbing, or edema and are nontender to palpation bilaterally. Digital cervical examination demonstrates her cervix to be 1-1/2 to 2 cm dilated, 50% effaced, with a vertex and presentation at -2 station. Artificial rupture of membranes is carried out demonstrating clear fluid. Results Result Diagrams: 04/28/24 06:55 Abnormal Lab Results - Last 24 Hours (Table) 04/28/24 Range/Units 06:55 WBC 14.2 H (3.8-10.6) k/uL Neutrophils # 10.9 H (1.3-7.7) k/uL Assessment and Plan (1) Intrauterine growth retardation in Current Visit: Yes Status: Acute Code(s): O36.5990 - MATERN CARE FOR OTH OR SUSP POOR FETL GRTH, UNSP TRI, UNSP SNOMED Code(s): 294244731 (2) Group B streptococcal infection in Current Visit: Yes Status: Acute Code(s): O98.819 - OTH MATERNAL INFEC/PARASTC DISEASES COMP PREG, UNSP TRI; B95.1 - STREPTOCOCCUS, GROUP B, CAUSING DISEASES CLASSD ELSWHR SNOMED Code(s): 264155924 (3) Term Current Visit: Yes Status: Acute Code(s): Z34.80 - ENCOUNTER FOR SUPRVSN OF NORMAL , UNSP TRIMESTER SNOMED Code(s): 23192914 Plan: The patient is admitted for induction of labor. Pitocin augmentation has been started and she has had antibiotic prophylaxis started for group B strep positivity. She will have close maternal and surveillance and expectant management will be practiced. She is a good candidate for IV, epidural, or nitrous analgesia, whichever she may choose.
[2024-04-28] MEDS ORDERED: ROPIVACAINE 5 MG/ML 30 ML VIAL ONE (14:36)
[2024-04-28] MEDS ORDERED: SODIUM CHLORIDE 0.9% 250 ML BAG ONE (14:36)
[2024-04-28] MEDS ORDERED: fentaNYL (PF) 50 MCG/ML 5 ML AMP ONE (14:36)
[2024-04-28] MEDS: SILVER NITRATE APPLICATOR 1 EACH STICK..EA. TOPICAL ONE (22:45)
[2024-04-28] MEDS ORDERED: LANOLIN CREAM 1 GM TUBE TOPICAL PRN (22:48)
[2024-04-28] MEDS ORDERED: SIMETHICONE 80 MG CHEWABLE PO PRN (22:48)
[2024-04-28] MEDS ORDERED: HYDROcodone/APAP 7.5-325MG 1 EACH TAB PO PRN (22:48)
[2024-04-28] MEDS ORDERED: BENZOCAINE/MENTHOL SPRAY 1 GM/SPRAY AEROSOL TOPICAL PRN (22:48)
[2024-04-28] MEDS ORDERED: diphenhydrAMINE 50 MG/ML 1 ML VIAL IVP PRN ×2 (22:48)
[2024-04-28] MEDS ORDERED: HYDROCORTISONE 2.5% RECTAL CREAM 30 GM TUBE RECTAL PRN (22:48)
[2024-04-28] MEDS ORDERED: ZOLPIDEM 5 MG TAB PO PRN (22:48)
[2024-04-28] MEDS ORDERED: HYDROcodone/APAP 5-325MG 1 EACH TAB PO PRN (22:48)
[2024-04-28] MEDS ORDERED: diphenhydrAMINE 50 MG CAP PO PRN (22:48)
[2024-04-28] MEDS ORDERED: diphenhydrAMINE 25 MG CAP PO PRN (22:48)
--- NOTE | 2024-04-28 22:52 | P.PROBDLV ---
Vaginal Delivery Note - . Vaginal Delivery Note: Patient is a 28-year-old 3 para 2-0-0-2 admitted at 38-5/7 weeks by good dating parameters. She is admitted for induction of labor secondary to the diagnosis of intrauterine growth restriction with growth at less than 10th percentile. testing has been reassuring since the diagnosis on a twice weekly basis. Her was otherwise uncomplicated and group B strep status is positive. On labor and delivery, she had a category 1 heart rate tracing. Antibiotic prophylaxis was started along with Pitocin augmentation. She underwent artificial rupture of membranes for clear fluid. She made relatively slow progress through the latent phase of labor and had an epidural catheter placed for analgesia. She then continued to make slow but steady progress through the active phase of labor and ultimately progressed to complete. She pushed over the course of approximately 30 minutes to a normal spontaneous vaginal delivery of a viable 6 pound 8 ounce baby girl with Apgars of 9 at 1 minute and 9 at 5 minutes delivered in the left occiput anterior position. The placenta was delivered spontaneously, intact, and grossly normal with a grossly normal three-vessel cord inserted approximately 3 to 4 cm from the margin of the placental disc. There were no significant lacerations of the perineum, vagina, or cervix. The patient did have a roughly 4 to 5 mm skin tag on her right buttock which she requested to have removed. It was elevated with a forceps and removed with the scissors. The base was oozing slightly and was made hemostatic with 2 silver nitrate sticks. Estimated blood loss for the entire case was approximately 150 mL. There were no complications. All sponge, instrument, needle counts were correct. Both mother and infant are resting comfortably in recovery.
[2024-04-28] MEDS ORDERED: OXYTOCIN 30 UNITS/500 ML NS 30 UNIT in SALINE 1 500ML.BAG IV SCH (23:00)
[2024-04-29] MEDS: ACETAMINOPHEN TAB 325 MG TAB PO PRN (07:06)
--- NOTE | 2024-04-29 09:04 | P.DS ---
Providers Date of admission: 04/28/24 06:00 Expected date of discharge: 04/29/24 Attending physician: Uriah Edmondson Primary care physician: Antonio Lim - Discharge Diagnosis(es) (1) Intrauterine growth retardation in Current Visit: Yes Status: Acute (2) Group B streptococcal infection in Current Visit: Yes Status: Acute (3) Term Current Visit: Yes Status: Acute (4) Normal spontaneous vaginal delivery Current Visit: Yes Status: Acute Hospital Course: The patient is a 28-year-old 3 para 2-0-0-2 admitted at 38-5/7 weeks by good dating parameters. She is admitted for induction of labor secondary to the diagnosis of IUGR. She had reassuring testing but was found to be group B strep positive. On labor delivery, all signs were reassuring with a category 1 heart rate tracing. Antibiotic prophylaxis was started along with Pitocin augmentation. She underwent artificial rupture of membranes for clear fluid. She made slow progress through both the latent and active phases of labor and had an epidural catheter placed around the onset of the active phase of labor. She ultimately did progressed to complete and then pushed to a normal spontaneous vaginal delivery of a viable 6 pound 8 ounce baby girl with Apgars of 9 at 1 minute and 9 at 5 minutes. Her course was unrem arkable with vital signs remaining stable and her temperature was afebrile throughout. She was deemed stable for discharge on day #1 was discharged home to follow-up in the office in 6 weeks time routinely. Discharge instructions included calling for any significantly increased bleeding or foul- smelling lochia, significantly increased fever or abdominal pain, perineal complaints, breast complaints, or anything else that concerned her. She was additionally instructed to have nothing in the vagina for at least 6 weeks time to include intercourse. She understood her instructions and agrees to follow-up as noted above. Discharge medications included continued vitamins as she has opted to breast-feed as well as [id number] analgesic pain medications. Maternal blood type is a positive and rubella status is immune. Procedures: #1. Pitocin induction #2. Antibiotic prophylaxis #3. Artificial rupture of membranes #4. Epidural analgesia #5. Normal spontaneous vaginal delivery Patient Condition at Discharge: Stable Plan - Discharge Summary New Discharge Prescriptions: No Action Albuterol Nebulized [Ventolin Nebulized (Accuneb)] 3 ml INHALATION Q6H Vit No.179/Iron/Folic [ Tablet] 1 each PO DAILY Discharge Medication List Albuterol Nebulized [Ventolin Nebulized (Accuneb)] 3 ml INHALATION Q6H 04/28/24 [History] Vit No.179/Iron/Folic [ Tablet] 1 each PO DAILY 04/28/24 [History] Follow up Appointment(s)/Referral(s): Uriah Edmondson MD [STAFF PHYSICIAN] - 6 Weeks Discharge Disposition: HOME SELF-CARE
[2024-04-29] MEDS: IBUPROFEN 600 MG TAB PO PRN (09:16)
[2024-04-29 09:39] LABS: HCT 36.1 % (34.0-46.0); HGB 11.6 gm/dL (11.4-16.0); MCHC 32.1 g/dL (31.0-37.0); MCV 87.2 fL (80.0-100.0); Mean Platelet Volume 9.1; Platelet Count 352 k/uL (150-450); RBC 4.14 m/uL (3.80-5.40); WBC 16.5 k/uL (3.8-10.6)
[2024-04-29] MEDS: SENNOSIDES-DOCUSATE SODIUM 1 EACH TAB PO SCH (10:00)
[2024-04-29 20:50] VITALS: BP 120/76; PULSE 76; TEMP 98.2
== END 2024-04-30 | disposition home or self-care (01) | DRG 560 ==
LOC: 4FBP 06:00
PROVIDERS: ADMIT Obstetrics & Gynecology; ATTEND Obstetrics & Gynecology
PROC: 10907ZC Drainage of Amniotic Fluid, Therapeutic from Products of Conception, Via Natural or Artificial Opening (ICD-10-PCS; principal; 2024-04-28)
PROC: 3E033VJ Introduction of Other Hormone into Peripheral Vein, Percutaneous Approach (ICD-10-PCS; principal; 2024-04-28)
PROC: 10E0XZZ Delivery of Products of Conception, External Approach (ICD-10-PCS; principal; 2024-04-28)
DX: O36.5930 Maternal care for other known or suspected poor fetal growth, third trimester, not applicable or unspecified (principal); Z3A.38 38 weeks gestation of pregnancy; Z37.0 Single live birth; O98.82 Other maternal infectious and parasitic diseases complicating childbirth; O99.334 Smoking (tobacco) complicating childbirth; O99.52 Diseases of the respiratory system complicating childbirth; J45.909 Unspecified asthma, uncomplicated; O99.354 Diseases of the nervous system complicating childbirth; G40.909 Epilepsy, unspecified, not intractable, without status epilepticus; F17.200 Nicotine dependence, unspecified, uncomplicated; O99.824 Streptococcus B carrier state complicating childbirth; Z28.310 Unvaccinated for COVID-19; F17.210 Nicotine dependence, cigarettes, uncomplicated; Z88.0 Allergy status to penicillin; Z88.2 Allergy status to sulfonamides
CPT/HCPCS: 85025; 86850; 86900; 86901

== ENCOUNTER → 2024-12-31 | Outpatient (CLI) | payer OTHER ==
[2024-12-31 15:05] LABS: Basophils # (A) 0.06 X 10*3/uL (0.00-0.10); Basophils % (A) 0.8 %; Eosinophils # (A) 0.33 X 10*3/uL (0.04-0.35); Eosinophils % (A) 4.1 %; HCT 39.6 % (37.2-46.3); HGB 12.3 g/dL (12.0-15.0); Lymphocytes # (A) 2.81 X 10*3/uL (0.90-5.00); Lymphocytes % (A) 35.3 %; MCH 26.4 pg (27.0-32.0); MCHC 31.1 g/dL (32.0-37.0); Mean Platelet Volume 10.1 FL (9.5-12.2); Monocytes # (A) 0.36 X 10*3/uL (0.20-1.00); Monocytes % (A) 4.5 %; NRBC Per 100 WBC 0 X 10*3/uL (0.00-0.01); Neutrophils # (A) 4.38 X 10*3/uL (1.80-7.70); Platelet Count 456 X 10*3/uL (140-440); RBC 4.66 X 10*6/uL (4.10-5.20); RDW 15.2 % (11.5-14.5); WBC 7.96 X 10*3/uL (4.50-10.00)
== END | disposition home or self-care (01) ==
LOC: LABWHC1 09:05
PROVIDERS: ATTEND Obstetrics & Gynecology
DX: Z01.812 Encounter for preprocedural laboratory examination (principal)
CPT/HCPCS: 36415; 85025

== ENCOUNTER 2025-01-01 07:00 | Day surgery (SDC) | payer OTHER ==
--- NOTE | 2024-12-31 23:11 | HP ---
HISTORY AND PHYSICAL DATE OF SURGERY: 01/01/2025. HISTORY OF PRESENT ILLNESS: The patient is a 5, para 3-0-0-3, who presents to the office to discuss permanent sterilization. She has asked her partner and he is unwilling to undergo vasectomy. She has a difficult time remembering to use contraception consistently and does not wish to have any further pregnancies. She is aware of other long-term reversible methods, but has requested permanent sterilization. We discussed options for sterilization, and she has selected bilateral salpingectomy. PAST MEDICAL HISTORY: Significant only for asthma, which is allergy-induced in nature. SURGICAL HISTORY: She had her tonsils out as a child. OBSTETRICAL HISTORY: 5, para 3-0-0-3 with 3 term vaginal deliveries without complications. Current method of contraception is condoms when used. GYNECOLOGIC HISTORY: Unremarkable with no history of any infections to include STDs. FAMILY HISTORY: Noncontributory. SOCIAL HISTORY: The patient is single, but has a significant other. 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 She is a smoker of less than a pack per day and denies any other significant social concerns. CURRENT MEDICATIONS: Include only a Ventolin. ALLERGIES: To Bactrim, which causes nausea. She, apparently, has a milk allergy as well and has other environmental allergies. Penicillin has caused a rash. REVIEW OF SYSTEMS: Confined to history of present illness. PHYSICAL EXAMINATION: VITAL SIGNS: Stable. The patient is afebrile. GENERAL: This is a well-developed, well-nourished white female in no acute distress. HEART: Regular rhythm and rate without murmur. LUNGS: Clear to auscultation bilaterally in all lebron. ABDOMEN: Nondistended, has normoactive bowel sounds, soft, nontender, without any masses, hepatosplenomegaly, or hernias. EXTREMITIES: Without any cyanosis, clubbing, or edema and are nontender to palpation bilaterally. PELVIC EXAMINATION: Demonstrates normal external genitalia and BUS with normal vaginal mucosa and cervix. There is no cervical motion tenderness. Uterus is 4 to 5 weeks in size, mid plane, mobile, nontender, normal in shape. The adnexa are normal and nontender without mass bilaterally. ASSESSMENT AND PLAN: Undesired fertility: We have discussed multiple different alternatives and the patient has requested to proceed with permanent sterilization, specifically laparoscopic bilateral salpingectomy. The risks and complications have been discussed at length, including the risk for injury to the bowel, bladder, and ureters. I additionally discussed the permanent nature of the procedure as well as potential risk for ectopic . She has understood all of this and has agreed to proceed. YRN / MONTRELL: [id number] /
[~2025-01-01 07:00] MED LIST: LIDOCAINE 1% (10MG/ML) FOR IV START INTRADERMA PRN; MIDAZOLAM 2 MG/2 ML VIAL IV PRN; Pre Op ABX Message 1 EACH MISC MISCELLANE ONE; fentaNYL (PF) 50 MCG/ML 2 ML AMP IVP PRN
[2025-01-01] MEDS: IV FLUID CONTINUATION 1,000 ML IV ONE ×2 (07:40→10:45)
[2025-01-01 07:47] LABS: Glucose,Whole Blood 91 mg/dL (70-110)
[2025-01-01] MEDS: LACTATED RINGERS 1,000 ML IV SCH (07:51)
[2025-01-01] MEDS: DEXAMETHASONE SOD PHOSPHATE 4 MG/ML 1 ML VIAL IV ONE (07:51)
[2025-01-01] MEDS: ONDANSETRON 4 MG/2 ML VIAL IVP ONE (07:51)
[2025-01-01] MEDS ORDERED: ROCURONIUM 10 MG/ML (5 ML VIAL) IV ONE (08:21)
[2025-01-01] MEDS ORDERED: LIDOCAINE 1% INJ 10MG/ML (20 ML MDV) ONE (08:21)
[2025-01-01] MEDS ORDERED: MIDAZOLAM 2 MG/2 ML VIAL ONE (08:21)
[2025-01-01] MEDS ORDERED: NEOSTIGMINE 1 MG/ML 10 ML VIAL ONE (08:21)
[2025-01-01] MEDS ORDERED: KETOROLAC 15 MG/ML 1 ML VIAL ONE (08:21)
[2025-01-01] MEDS ORDERED: PROPOFOL 10 MG/ML 20 ML VIAL IV ONE (08:21)
[2025-01-01] MEDS ORDERED: GLYCOPYRROLATE 0.2 MG/ML 2 ML VIAL ONE (08:21)
[2025-01-01] MEDS ORDERED: fentaNYL (PF) 50 MCG/ML 2 ML AMP ONE (08:21)
[2025-01-01] MEDS: BUPIVACAINE (PF) 0.5% 30 ML VIAL SQ ONE (08:43)
[2025-01-01] MEDS ORDERED: ACETAMINOPHEN TAB 325 MG TAB PO PRN (09:13)
[2025-01-01] MEDS ORDERED: diphenhydrAMINE 25 MG CAP PO PRN (09:13)
[2025-01-01] MEDS ORDERED: ONDANSETRON 4 MG/2 ML VIAL IVP PRN (09:13)
[2025-01-01] MEDS ORDERED: SIMETHICONE 80 MG CHEWABLE PO PRN (09:13)
[2025-01-01] MEDS ORDERED: diphenhydrAMINE 50 MG/ML 1 ML VIAL IVP PRN (09:13)
[2025-01-01] MEDS ORDERED: METOCLOPRAMIDE 5 MG/ML 2 ML VIAL IVP PRN (09:13)
[2025-01-01] MEDS ORDERED: KETOROLAC 15 MG/ML 1 ML VIAL IVP PRN (09:13)
[2025-01-01] MEDS ORDERED: IBUPROFEN 600 MG TAB PO PRN (09:13)
[2025-01-01] MEDS ORDERED: LACTATED RINGERS 1,000 ML IV SCH (09:15)
--- NOTE | 2025-01-01 09:21 | P.OP ---
Date of Procedure: 01/01/25 Preoperative Diagnosis: #1. Multiparity #2. Undesired fertility Postoperative Diagnosis: Same Procedure(s) Performed: #1. Laparoscopic bilateral salpingectomy Anesthesia: CARLITOA Surgeon: Uriah Edmondson Estimated Blood Loss (ml): 5 IV fluids (ml): 300 Urine output (ml): 50 Pathology: other (Bilateral fallopian tubes) Condition: stable Disposition: PACU Operative Findings: Preoperative pelvic examination demonstrated a 4 to 5 weeks slightly retroverted mobile normal shaped uterus with normal adnexa bilaterally. Intraoperatively, the uterus, tubes, and ovaries were entirely normal to inspection. There was no other pathology noted in the pelvis. The appendix was normal as was the small and large intestine. The liver, gallbladder, and diaphragm appeared normal as well. Description of Procedure: The patient was prepped and draped in usual fashion after general endotracheal anesthesia was administered by the anesthesiologist. A speculum was placed in the anterior lip of the cervix grasped with a single-tooth tenaculum allowing placement of an acorn cannula for uterine manipulation during the case. The speculum was removed and the bladder was drained of approximately 50 cc of clear tae urine. Attention was turned to the abdomen where a roughly 5 mm incision was made in a vertical fold of the umbilicus allowing insertion of a 5 mm optical trocar under direct visualization without difficulty. A pneumoperitoneum was infused and Trendelenburg positioning utilized. A site was selected approximately 12 cm lateral to the optical port and 3 to 4 cm below it in the left lower quadrant where an 8 mm incision was made in the transverse plane along insertion of an 8 mm port under direct visualization without difficulty. A mirroring port was placed with a 5 mm port in the right lower quadrant. A grasper was utilized to grasp the left fallopian tube from the right side of the table and elevated to allowing removal of the tube without difficulty using a LigaSure device to its insertion at the cornua of the uterus. A similar operation was carried out on the right side. Both tubes were removed independently through the 8 mm port and sent to pathology for diagnoses. The remainder of the pelvis and abdomen were examined and the findings are as noted above with no evidence of pathology and otherwise entirely normal findings. The entire pneumoperitoneum was then evacuated through the 3 ports and the ports removed. The incisions were closed with interrupted subcuticular stitches of 4- 0 Vicryl followed by half-inch Steri-Strips placed with Mastisol. The incisions were infused with a total of 10 mL of half percent Marcaine without epinephrine equally infused between the 3 incisions. Estimated blood loss for the case was 5 mL or less. There were no complications. All sponge, instrument, and needle counts were correct. The patient tolerated the procedure well and proceeded to the recovery room in stable condition.
[2025-01-01 09:23] VITALS: TEMP 97.3
[2025-01-01] MEDS: HYDROmorphone 0.5 MG/0.5 ML SYRINGE IVP PRN (09:25)
[2025-01-01 10:30] VITALS: RESP 16
[2025-01-01 10:54] VITALS: BP 112/76; PULSE 59
== END 2025-01-01 11:09 | disposition home or self-care (01) ==
LOC: OR 07:00
PROVIDERS: ATTEND Obstetrics & Gynecology
DX: Z30.2 Encounter for sterilization (principal); Z64.1 Problems related to multiparity; N83.8 Other noninflammatory disorders of ovary, fallopian tube and broad ligament; K21.9 Gastro-esophageal reflux disease without esophagitis; J45.909 Unspecified asthma, uncomplicated; F17.200 Nicotine dependence, unspecified, uncomplicated; Z79.899 Other long term (current) drug therapy; Z86.69 Personal history of other diseases of the nervous system and sense organs; Z88.0 Allergy status to penicillin; Z88.2 Allergy status to sulfonamides; Z88.1 Allergy status to other antibiotic agents; Z91.011 Allergy to milk products
CPT/HCPCS: 58661; 81025; 88302; J2250; J1100; J2710; J2405; J2003; J3010; J1885; J2704; J1171; J0665; J1596